=== PATIENT | female | born 1940 | race Hispanic/Latino ===

== ENCOUNTER 2017-03-10 16:22 | Inpatient (IN) | payer MEDICARE ==
[2017-03-10 16:26] VITALS: O2SAT 98
--- NOTE | 2017-03-10 16:57 | ED PDOC ---
HPI: Psych/Substance Abuse Time Seen by Provider: 03/10/17 16:45 Chief Complaint (Nursing): Psychiatric Evaluation Chief Complaint (Provider): Psych evaluation History Per: Patient History/Exam Limitations: no limitations Additional Complaint(s): Patient is a 76 y/o female with a past medical history of obsessive compulsive disorder presenting to the emergency department for a psych evaluation. Reports suicidal ideation, stating that she feels overwhelmed and can't concentrate. Admits to being noncompliant with her medication for years and also expresses concern about developing dementia after she found herself unable to perform simple subtraction. Dressing to right index finger noted. States that her finger started bleeding without reason. Denies suicidal plan, suicidal attempts in the past, homicidal ideation, or other complaints. PCP: none provided. Past Medical History Reviewed: Historical Data, Nursing Documentation, Vital Signs Vital Signs: Last Vital Signs Temp 98.0 F 03/10/17 16:23 Pulse 100 H 03/10/17 16:23 Resp 16 03/10/17 16:23 BP 142/88 03/10/17 16:23 Pulse Ox 98 03/10/17 16:23 - Family History Family History: States: Unknown Family Hx - Allergies Allergies/Adverse Reactions: Allergies Allergy/AdvReac Type Severity Reaction Status Date / Time aspirin Allergy RASH Verified 03/10/17 16:22 Penicillins Allergy RASH Verified 03/10/17 16:22 Review of Systems ROS Statement: Except As Marked, All Systems Reviewed And Found Negative Psych: Positive for: Suicidal ideation (without plan). Negative for: Other ( homicidal ideation) Physical Exam - Reviewed Nursing Documentation Reviewed: Yes Vital Signs Reviewed: Yes - Physical Exam Appears: Positive for: No Acute Distress Head Exam: Positive for: ATRAUMATIC, NORMAL INSPECTION, NORMOCEPHALIC Skin: Positive for: Normal Color, Warm, Dry Eye Exam: Positive for: Normal appearance Neck: Positive for: Normal Cardiovascular/Chest: Positive for: Regular Rate, Rhythm Respiratory: Negative for: Accessory Muscle Use, Respiratory Distress Extremity: Positive for: Normal ROM, Other (Dressing to right index finger noted ) Neurologic/Psych: Positive for: Alert, Oriented (x3) - Laboratory Results Result Diagrams: 03/10/17 17:25 03/10/17 17:25 - ECG O2 Sat by Pulse Oximetry: 98 (RA) Pulse Ox Interpretation: Normal - Progress ED Course And Treament: EKG: NSR 82BPM; NO ECTOPY NO ACUTE CHANGE cxr: nad d/w dr. Yung Admit for Anxiety/ Depression ativan 0.5mg x 1 dose vistaril 25 mg Medical Decision Making Medical Decision Making: Time: 16:45 Initial impression: Psychiatric evaluation Initial plan: * EKG * Labs * Urine drug screening * Chest X-ray * Urinalysis * Reevaluation ~ Scribe Attestation: Documented by Caitlyn Frances, acting as a scribe for CHATA Thomson. Provider Scribe Attestation: All medical record entries made by the Scribe were at my direction and personally dictated by me. I have reviewed the chart and agree that the record accurately reflects my personal performance of the history, physical exam, medical decision making, and the department course for this patient. I have also personally directed, reviewed, and agree with the discharge instructions and disposition. Disposition - Clinical Impression Clinical Impression: Anxiety, OCD (obsessive compulsive disorder) - Patient ED Disposition Is Patient to be Admitted: Yes - Disposition Disposition Time: 19:45 Condition: FAIR - Pt Status Changed To: Hospital Disposition Of: Inpatient - Admit Certification Admit to Inpatient:: After my assessment, the patient will require hospitalization for at least two midnights. This is because of the severity of symptoms shown, intensity of services needed, and/or the medical risk in this patient being treated as an outpatient.
[2017-03-10 17:30] LABS: BASO % 0.5 % (0.0-2.0); EOS % 0.2 % (0.0-4.0); HEMATOCRIT 43.4 % (34.0-47.0); LYMPH # 0.8 K/uL (1.0-4.3); LYMPH % 10.8 % (20.0-40.0); MEAN CELL VOLUME 93.5 fl (81.0-99.0); MEAN CORPUSCULAR HEMOGLOBIN 30.7 pg (27.0-31.0); MEAN CORPUSCULAR HGB CONC 32.8 g/dL (33.0-37.0); MEAN PLATELET VOLUME 8.6 fl (7.2-11.7); MONO # 0.8 K/uL (0.0-0.8); MONO % 9.8 % (0.0-10.0); NEUT # 6.1 K/uL (1.8-7.0); NEUT % 78.7 % (50.0-75.0); RED CELL DISTRIBUTION WIDTH 13.1 % (11.5-14.5); WHITE BLOOD COUNT 7.8 K/uL (4.8-10.8)
[2017-03-10 17:52] LABS: ALB/GLOB RATIO 1.4 (1.0-2.1); ALCOHOL SERUM < 10 mg/dl (0-10); ALKALINE PHOSPHATASE 60 U/L (38-126); ALT/SGPT 31 U/L (9-52); AST/SGOT 24 U/L (14-36); BILIRUBIN,TOTAL 0.2 mg/dl (0.2-1.3); BLOOD UREA NITROGEN 18 mg/dl (7-17); CALCIUM 9.2 mg/dL (8.4-10.2); CARBON DIOXIDE 23 mmol/L (22-30); CHLORIDE 107 mmol/L (98-107); GFR AFRICAN-AMERICAN > 60; GLUCOSE,RANDOM 125 mg/dL (65-105); POTASSIUM 4.1 MMOL/L (3.6-5.0); SODIUM 142 mmol/l (132-148); TOTAL PROTEIN 7.3 G/DL (6.3-8.2)
[2017-03-10 20:51] LABS: RBC URINE 2 /hpf (0-3); URINE BACTERIA RARE (<OCC); URINE BILIRUBIN NEGATIVE (NEGATIVE); URINE BLOOD NEGATIVE (NEGATIVE); URINE COLOR YELLOW (YELLOW); URINE GLUCOSE (UA) NEG (Normal); URINE KETONE NEGATIVE (NEGATIVE); URINE LEUKOCYTE ESTERASE TRACE Leu/uL (Negative); URINE PROTEIN NEGATIVE (NEGATIVE); URINE UROBILINOGEN 0.2-1.0 mg/dL (0.2-1.0); WBC URINE 1 /hpf (0-5)
[2017-03-10] MEDS ORDERED: Magnesium Hydroxide Susp 30 ml UD PO PRN (22:28)
[2017-03-10] MEDS ORDERED: Alum-Mag Hydrox-Simethicone Susp (30 mL) PO PRN (22:28)
--- NOTE | 2017-03-10 22:45 | PCM.BM ---
<Natty Harrison - Last Filed: 03/10/17 22:43> Treatment Plan Problems - Problems identified on initial assessmt Anxiety Date Initiated: 03/10/17 Time Initiated: 22:43 Assessment reference: NA Status: Active Altered Sleep Patterns Date Initiated: 03/10/17 Time Initiated: 22:44 Assessment reference: NA Status: Active Treatment assets and liabiliti Patient Assests: ADL independent, physically healthy, negotiates basic needs Patient Liabilities: live alone - Milieu Protocol Maintain good personal hygiene: daily Encourage regular showers, daily Remind patient to perform daily oral care, daily Assist patient to perform ADL's Conduct patient checks and document Observation sheet: Q15 minutes Maintain personal safety: every shift Educate patient to report safety concerns to staff, every shift Monitor environment for contraband/sharps Medication safety: Monitor for expected outcome, potential side effects: every shift, Assess barriers to learning: every shift, Assess readiness for medication education: every shift <Katie Perez - Last Filed: 03/11/17 09:27> - Diagnosis (1) Generalized anxiety disorder Status: Acute Interventions: Psychopharmacology, Psychoeducation, Psychotherapy 03/11/17 09:27 (2) Major depressive disorder Status: Acute Interventions: Psychopharmacology, Psychoeducation, Psychotherapy 03/11/17 09:28 <Remedios Parrish - Last Filed: 03/15/17 16:01> Family Contact Family contact: Patient agrees to contact Family contact name: Cristy (Daughter) Family contacted how many times per week?: 1 Family contact comment: [phone] - Goals for Treatment Patient goals for treatment: Pt to be encouraged to attend activity and clinical groups 3-5x per week to identify at least 2 contributing factors to depression and anxiety. Psycho-education to be provided to patient/family regarding benefits of medications and treatment adherence. Pt to be encouraged to participate in group milieu to develop effective coping skills to reduce depression and anxiety. Coordinate discharge resource needs by providing referral for psychiatric treatment follow up in the community. Discharge/Continuing Care - Education Needs Education Needs: Family Medication, Family Diagnosis/Disease Process, Family Coping Skills, Family Placement options, Family Community resources, Family Activities of Daily Living, Family Health Practices/Safety, Family Personal Hygiene/Grooming, Family Aftercare Safety Plan, Patient Medication, Patient Diagnosis/Disease Process, Patient Coping Skills, Patient Placement options, Patient Community resources, Patient Activities of Daily Living, Patient Health Practices/Safety, Patient Personal Hygiene/Grooming, Patient Aftercare Safety Plan - Discharge Discharge Criteria: Tolerates medication w/o severe side effects, Normal sleep pattern, Ability to care for self, Reduction of target symptoms Discharge to:: Home, With Family - Additional Comments 03/15/17 16:00 Pt seen and discussed in team meeting. Pt reported feeling "much better." Pt appears to be less anxious and more re-directable. Pt's medications reviewed and discussed. Tx plan reviewed and discussed; pt verbalized agreement. Briquette Molder will continue to follow case/pt. - Treatment Team Participation Discussed with Family/SO: No (Will be informed via telephone) Was Patient/Family/SO present at Treatment Team Meeting: Yes
--- NOTE | 2017-03-11 07:29 | CARD ---
APPROVED REPORT EKG Measurement Heart [id number] <Conclusion> Normal sinus rhythm Cannot rule out Anterior infarct, age undetermined Abnormal ECG
--- NOTE | 2017-03-11 08:35 | PCM.PSYCH ---
Initial Psychiatric Evaluation - Initial Psychiatric Evaluation Type of Admission: Voluntary Legal Status: Capacity Chief Complaint (in patient's own words): "I can't stop worrying" Patient's Reaction to Hospitalization: HPI: 76 yo female w/ h/o depression and anxiety, presents w/ depressed mood, excessive anxiety, ruminating thoughts, no compulsions, anhedonia, hopelessness/ helplessness, poor sleep and appetite. She also feels worried that her money is being depleted from her bank account, but otherwise denied paranoia. No AH/ VH/SI/HI. Patient also reports difficulty with her memory. She is apprehensive to take medications. We discussed various treatment options and she agreed to try Remeron. Risks/benefits reviewed, patient given a handout w/ information. Pt's daughter Cristy Montoya [phone] stated that patient have been progressively is getting worse with her anxiety. She has excessive worrying about anything, particularly money. She does not wants to leave the house. She is not sleeping well, restlessness, easily tired, has difficulties concentrating or doing simple arithmetic problems. She is not sleeping well for days. PPHx: History of inpatient and outpatient tx 13 year ago for a "nervous breakdown". She does not recall which medications she took in the past. PMHx: Patient denies medical problems ALL: ASA, PCN FHx: Mother w/ Alzheimers SHx: Unemployed, lives alone, +children, denies illicit drug use Current Medications: Active Medications Generic Name Dose Route Start Last Admin Trade Name Freq PRN Reason Stop Dose Admin Acetaminophen 650 mg 03/10/17 22:28 Tylenol 325mg Tab PO Q4 PRN Pain, moderate (4-7) Al Hydrox/Mg Hydrox/Simethicone 30 ml 03/10/17 22:28 Maalox Plus 30 Ml PO Q4 PRN Dyspepsia Lorazepam 0.5 mg 03/10/17 22:28 Ativan PO 03/24/17 22:29 HS PRN Insomnia Lorazepam 0.5 mg 03/11/17 01:21 Ativan PO Q6 PRN Anxiety Magnesium Hydroxide 30 ml 03/10/17 22:28 Milk Of Magnesia PO HS PRN Constipation Past Psychiatric History - Past Psychiatric History Previous Treatment History: Inpatient Pertinent Medical Hx (Current Medical&Sleep Prob, Allergies): Allergies Allergy/AdvReac Type Severity Reaction Status Date / Time aspirin Allergy RASH Verified 03/10/17 16:22 Penicillins Allergy RASH Verified 03/10/17 16:22 No Known Home Med 03/10/17 Review of Systems - Psychiatric Psychiatric: As Per HPI, Abnormal Sleep Pattern, Anhedonia, Anxiety, Behavioral Changes, Change in Appetite, Depression, Difficulty Concentrating, Memory Loss Mental Status Examination - Personal Presentation Personal Presentation: Looks stated age - Affect Affect: Other (Anxious, labile) - Motor Activity Motor Activity: Calm - Reliability in Providing Information Reliability in Providing Information: Poor, due to cognitve impairment - Speech Speech: Coherent - Mood Mood: Depressed, Anxious - Formal Thought Process Formal Thought Process: Other (Ruminates about anxious thoughts) - Hallucinations/Delusions Additional comments: NO AH/VH/paranoia/delusions - Obsessions/Compulsions Obsessions: No Compulsions: No - Cognitive Functions Orientation: Person, Place, Situation Sensorium: Alert Judgement: Imparied, as evidence by: Lack of insight into illness Memory: Recent imparied as evidence by:Inability to complete 3/3 object recall, Remote impaired as evidenced by: Inability to recall sig life events, Remote impaired as evidenced by: Inability to recall historical events - Risk Risk: Diminished functioning - Strength & Assets Inventory Strength & Assets Inventory: Family support - Limitations Limitations: Living alone, Decreased memory, recent DSM 5 DX - DSM 5 DSM 5 Diagnosis: Major Depressive Disorder, Generalized Anxiety Disorder, r/o Dementia - Recommended/Plan of Treatment Treatment Recommendations and Plan of Treatment: Major Depressive Disorder, Generalized Anxiety Disorder, r/o Dementia -Admit to psychiatry -Individual and group therapy -Ativan 0.5 mg PO PRN anxiety -Remeron 15 mg PO HS -Obtain collateral history from family Projected ELOS: 3-7 days Discharge Plan and Discharge Criteria: Discharge when psychiatrically stable - Smoking Cessation Smoking Cessation Initiated: No Reason for not providing: Not indicated
--- NOTE | 2017-03-11 08:56 | RAD ---
PROCEDURE: CHEST RADIOGRAPH, 1 VIEW HISTORY: ROUTINE COMPARISON: None available. FINDINGS: LUNGS: Clear. PLEURA: No pneumothorax or pleural fluid seen. CARDIOVASCULAR: Normal. OSSEOUS STRUCTURES: No significant abnormalities. VISUALIZED UPPER ABDOMEN: Normal. OTHER FINDINGS: None. IMPRESSION: No active disease.
--- NOTE | 2017-03-11 11:53 | CP.PCM.CON ---
<Paula Aguilar - Last Filed: 03/11/17 14:34> History of Present Illness - History of Present Illness History of Present Illness: 76 y/o female seen at bedside in psych unit after consult for medical evaluation. Pt states she came into the hospital because she has been having obsessive compulsive thoughts that are making her mind go crazy. Pt states it makes her worried and nervous. Pt denies having any suicidal or homicidal ideations. Pt denies feeling depressed. Pt admits to feeling constipated at this time, which she experiences occasionally at home. Pt denies F/C/N/V/D/CP/ SOB. PMH: denies PSH: tonsillectomy All: PCNs, aspirin Social: formerly social EtOH but increases OCD symptoms; denies cigarette or illicit drug use Review of Systems - Review of Systems All systems: reviewed and no additional remarkable complaints except (per HPI) Past Patient History - Past Social History Smoking Status: Never Smoked - CARDIAC Hx Cardiac Disorders: No - PULMONARY Hx Tuberculosis: No - NEUROLOGICAL HX Cerebrovascular Accident: No Hx Seizures: No - HEMATOLOGICAL/ONCOLOGICAL Hx Cancer: No Hx Human Immunodeficiency Virus (HIV): No - MUSCULOSKELETAL/RHEUMATOLOGICAL Hx Falls: No - GENITOURINARY/GYNECOLOGICAL Hx Sexually Transmitted Disorders: No - PSYCHIATRIC Hx Psychophysiologic Disorder: Yes (OCD) - SURGICAL HISTORY Hx Surgeries: No - ANESTHESIA Hx Anesthesia: No Meds Allergies/Adverse Reactions: Allergies Allergy/AdvReac Type Severity Reaction Status Date / Time aspirin Allergy RASH Verified 03/10/17 16:22 Penicillins Allergy RASH Verified 03/10/17 16:22 - Medications Medications: Current Medications Acetaminophen (Tylenol 325mg Tab) 650 mg PO Q4 PRN PRN Reason: Pain, moderate (4-7) Al Hydrox/Mg Hydrox/Simethicone (Maalox Plus 30 Ml) 30 ml PO Q4 PRN PRN Reason: Dyspepsia Lorazepam (Ativan) 0.5 mg PO HS PRN PRN Reason: Insomnia Stop: 03/24/17 22:29 Lorazepam (Ativan) 0.5 mg PO Q6 PRN PRN Reason: Anxiety Last Admin: 03/11/17 08:52 Dose: 0.5 mg Magnesium Hydroxide (Milk Of Magnesia) 30 ml PO HS PRN PRN Reason: Constipation Mirtazapine (Remeron) 15 mg PO HS [facility] Physical Exam - Constitutional Appears: Well, Non-toxic, No Acute Distress - Head Exam Head Exam: ATRAUMATIC, NORMOCEPHALIC - Eye Exam Eye Exam: EOMI, Normal appearance, PERRL Pupil Exam: NORMAL ACCOMODATION, PERRL - ENT Exam ENT Exam: Mucous Membranes Moist, Normal Exam - Neck Exam Neck exam: Positive for: Full Rom, Normal Inspection Additional comments: supple, non-tender - Respiratory Exam Respiratory Exam: Clear to Auscultation Bilateral, NORMAL BREATHING PATTERN Additional comments: no wheezing, no rales - Cardiovascular Exam Cardiovascular Exam: REGULAR RHYTHM, +S1, +S2 Additional comments: no murmur, no gallop, no JVD - GI/Abdominal Exam GI & Abdominal Exam: Normal Bowel Sounds, Soft Additional comments: non-tender to palpation - Rectal Exam Rectal Exam: Deferred - Extremities Exam Extremities exam: Positive for: normal capillary refill, normal inspection, pedal pulses present - Back Exam Back exam: FULL ROM, NORMAL INSPECTION - Neurological Exam Neurological exam: Alert, CN II-XII Intact, Normal Gait, Oriented x3 - Psychiatric Exam Psychiatric exam: Agitated, Anxious - Skin Skin Exam: Intact, Normal Color Results - Vital Signs Recent Vital Signs: Last Vital Signs Temp 98.0 F 03/10/17 16:23 Pulse 77 03/10/17 21:52 Resp 18 03/10/17 21:52 BP 150/70 03/10/17 21:52 Pulse Ox 98 03/10/17 21:52 - Labs Result Diagrams: 03/10/17 17:25 03/10/17 17:25 Labs: Laboratory Results - last 24 hr 03/10/17 03/10/17 03/10/17 17:25 17:25 20:20 WBC 7.8 RBC 4.64 Hgb 14.2 Hct 43.4 MCV 93.5 MCH 30.7 MCHC 32.8 L RDW 13.1 Plt Count 299 MPV 8.6 Neut % (Auto) 78.7 H Lymph % (Auto) 10.8 L Garza % (Auto) 9.8 Eos % (Auto) 0.2 Baso % (Auto) 0.5 Neut # 6.1 Lymph # 0.8 L Garza # 0.8 Eos # 0.0 Baso # 0.0 Sodium 142 Potassium 4.1 Chloride 107 Carbon Dioxide 23 Anion Gap 16 BUN 18 H Creatinine 0.7 Est GFR ( Amer) > 60 Est GFR (Non-Af Amer) > 60 Random Glucose 125 H Calcium 9.2 Total Bilirubin 0.2 AST 24 ALT 31 Alkaline Phosphatase 60 Total Protein 7.3 Albumin 4.2 Globulin 3.0 Albumin/Globulin Ratio 1.4 Urine Color Yellow Urine Clarity Slighty-cloudy Urine pH 6.0 Ur Specific [place] 1.020 Urine Protein Negative Urine Glucose (UA) Neg Urine Ketones Negative Urine Blood Negative Urine Nitrate Negative Urine Bilirubin Negative Urine Urobilinogen 0.2-1.0 Ur Leukocyte Esterase Trace Urine RBC (Auto) 2 Urine Microscopic WBC 1 Ur Squamous Epith Cells < 1 Urine Bacteria Rare Urine Opiates Screen Urine Methadone Screen Ur Barbiturates Screen Ur Phencyclidine Scrn Ur Amphetamines Screen U Benzodiazepines Scrn U Oth Cocaine Metabols U Cannabinoids Screen Alcohol, Quantitative < 10 03/10/17 20:35 WBC RBC Hgb Hct MCV MCH MCHC RDW Plt Count MPV Neut % (Auto) Lymph % (Auto) Garza % (Auto) Eos % (Auto) Baso % (Auto) Neut # Lymph # Garza # Eos # Baso # Sodium Potassium Chloride Carbon Dioxide Anion Gap BUN Creatinine Est GFR ( Amer) Est GFR (Non-Af Amer) Random Glucose Calcium Total Bilirubin AST ALT Alkaline Phosphatase Total Protein Albumin Globulin Albumin/Globulin Ratio Urine Color Urine Clarity Urine pH Ur Specific [place] Urine Protein Urine Glucose (UA) Urine Ketones Urine Blood Urine Nitrate Urine Bilirubin Urine Urobilinogen Ur Leukocyte Esterase Urine RBC (Auto) Urine Microscopic WBC Ur Squamous Epith Cells Urine Bacteria Urine Opiates Screen Negative Urine Methadone Screen Negative Ur Barbiturates Screen Negative Ur Phencyclidine Scrn Negative Ur Amphetamines Screen Negative U Benzodiazepines Scrn Negative U Oth Cocaine Metabols Negative U Cannabinoids Screen Negative Alcohol, Quantitative Assessment & Plan (1) OCD (obsessive compulsive disorder) Assessment and Plan: psych to continue with medical management Status: Acute (2) Constipation Assessment and Plan: Continue milk of magnesia Status: Chronic <Shaneka Scanlon - Last Filed: 03/12/17 19:22> Meds - Medications Medications: Current Medications Acetaminophen (Tylenol 325mg Tab) 650 mg PO Q4 PRN PRN Reason: Pain, moderate (4-7) Al Hydrox/Mg Hydrox/Simethicone (Maalox Plus 30 Ml) 30 ml PO Q4 PRN PRN Reason: Dyspepsia Lorazepam (Ativan) 0.5 mg PO Q12 LISA Last Admin: 03/12/17 11:02 Dose: 0.5 mg Lorazepam (Ativan) 0.5 mg PO Q12 PRN PRN Reason: Agitation Magnesium Hydroxide (Milk Of Magnesia) 30 ml PO HS PRN PRN Reason: Constipation Results - Vital Signs Recent Vital Signs: Last Vital Signs Temp 98.2 F 03/12/17 16:16 Pulse 81 03/12/17 16:16 Resp 20 03/12/17 16:16 BP 140/71 03/12/17 16:16 Pulse Ox 98 03/10/17 21:52 - Labs Result Diagrams: 03/10/17 17:25 03/10/17 17:25 Attending/Attestation - Attestation I have personally seen and examined this patient.: Yes I have fully participated in the care of the patient.: Yes I have reviewed all pertinent clinical information: Yes Notes (Text): 03/12/17 19:22 SEEN EXAMINED DISCUSSED WITH RESIDENT, AGREE WITH FINDINGS AND PLAN ABOVE.
--- NOTE | 2017-03-12 10:56 | PCM.PYCHPN ---
Psychiatric Progress Note - Psychiatric Progress Note Patient seen today, length of contact: Patient evaluated, case discussed with team, chart reviewed, 35 min Patient Chief Complaint: "I can't stop worrying" Problems Identified/Issues Discussed: Patient continues to be very anxious. She walks around the hallway intrusively talking to staff members. She ruminates over he anxious thoughts and is difficult to redirect at times. She is adamant that she does not want to take any antidepressant medications at this time due to concerns that her body is too sensitive for the medications. She reports that the Remeron makes her feel like "my head is swimming" and does not want to continue to take it. She was agreeable to taking Ativan 0.5 mg PO Q12 hr. r/b/se reviewed. Medication Change: Yes (Start Ativan 0.5 mg Q12 hr) Medical Record Reviewed: Yes Consults ordered or reviewed: Medicine consult appreciated Mental Status Examination - Cognitive Function Orientation: Person, Place, Situation Association: Loose Decription of patient's judgement and insights: Poor insight/fair judgment - Mood Mood: Depressed, Anxious - Affect Affect: Other (Anxious, labile) - Speech Speech: Pressured - Formal Thought Process Formal Thought Process: Other (Ruminates about anxious thoughts) Psychotic Thoughts and Behaviors: Denies AH/VH/paranoia/delusions - Suicidal Ideation Suicidal Ideation: No - Homicidal Ideation Homicidal Ideation: No Goal/Treatment Plan - Goal/Treatment Plan Need for Continued Stay: Remain at risks for inpatient hospitalization, Discharge may exacerbated symptoms Progress Toward Problem(s) and Goals/Treatment Plan: Major Depressive Disorder, Generalized Anxiety Disorder, r/o Dementia -Individual and group therapy -Ativan 0.5 mg PO Q12 hr -Stop Remeron 15 mg PO HS -Obtain collateral history from family -Disposition planning Estimated Date of D/C: 03/16/17 - Smoking Cessation Smoking Cessation Initiated: No Reason for not providing: Not indicated
--- NOTE | 2017-03-12 11:21 | CP.PCM.CON ---
History of Present Illness - History of Present Illness History of Present Illness: Pt is a 76 year old female admitted to [facility] and referred to the marketing writer for evaluation. On the DRS, pt scored an overall score of 125. She scored within normal limits on Attention, Construction, Initiation and Conceptualization tasks. Pt's Memory skills fell in the Borderline Range (17 with 18 within normal limits). Note, pt did not fully invest in the task, did not answer 2 questions/nor guess. She explained, "I need my daughter to know... I can't also balance my checkbook." Enlisting her daughter's help and her anxiety effected her performance on the memory task. Overall 126 Patient encouraged to obtain help in financial assistance advisor to reduce her distress. Thank you for this referral, Dr. Amaro Past Patient History - Past Social History Smoking Status: Never Smoked - CARDIAC Hx Cardiac Disorders: No - PULMONARY Hx Tuberculosis: No - NEUROLOGICAL HX Cerebrovascular Accident: No Hx Seizures: No - HEMATOLOGICAL/ONCOLOGICAL Hx Cancer: No Hx Human Immunodeficiency Virus (HIV): No - MUSCULOSKELETAL/RHEUMATOLOGICAL Hx Falls: No - GENITOURINARY/GYNECOLOGICAL Hx Sexually Transmitted Disorders: No - PSYCHIATRIC Hx Psychophysiologic Disorder: Yes (OCD) - SURGICAL HISTORY Hx Surgeries: No - ANESTHESIA Hx Anesthesia: No Meds Allergies/Adverse Reactions: Allergies Allergy/AdvReac Type Severity Reaction Status Date / Time aspirin Allergy RASH Verified 03/10/17 16:22 Penicillins Allergy RASH Verified 03/10/17 16:22 - Medications Medications: Current Medications Acetaminophen (Tylenol 325mg Tab) 650 mg PO Q4 PRN PRN Reason: Pain, moderate (4-7) Al Hydrox/Mg Hydrox/Simethicone (Maalox Plus 30 Ml) 30 ml PO Q4 PRN PRN Reason: Dyspepsia Lorazepam (Ativan) 0.5 mg PO Q12 LISA Last Admin: 03/12/17 11:02 Dose: 0.5 mg Lorazepam (Ativan) 0.5 mg PO Q12 PRN PRN Reason: Agitation Magnesium Hydroxide (Milk Of Magnesia) 30 ml PO HS PRN PRN Reason: Constipation Results - Vital Signs Recent Vital Signs: Last Vital Signs Temp 97.7 F 03/11/17 16:16 Pulse 84 03/11/17 16:16 Resp 20 03/11/17 16:16 BP 128/92 H 03/11/17 16:16 Pulse Ox 98 03/10/17 21:52 - Labs Result Diagrams: 03/10/17 17:25 03/10/17 17:25
--- NOTE | 2017-03-13 10:59 | PCM.PYCHPN ---
Psychiatric Progress Note - Psychiatric Progress Note Patient seen today, length of contact: Patient evaluated, case discussed with team, chart reviewed, 35 min Patient Chief Complaint: "I can't stop worrying" Problems Identified/Issues Discussed: Patient continues to be very anxious. She walks around the hallway intrusively talking to staff members. She ruminates over he anxious thoughts and is difficult to redirect at times. Today we discussed starting Zoloft, r/b/se reviewed, patient was agreeable to starting the medication. No adverse effects to Ativan reported. Medication Change: Yes (Start Zoloft 50 mg PO Daily) Medical Record Reviewed: Yes Consults ordered or reviewed: Psychology consult- Pt is a 76 year old female admitted to [facility] and referred to the chief underwriter for evaluation. On the DRS, pt scored an overall score of 125. She scored within normal limits on Attention, Construction, Initiation and Conceptualization tasks. Pt's Memory skills fell in the Borderline Range (17 with 18 within normal limits). Note, pt did not fully invest in the task, did not answer 2 questions/nor guess. She explained, "I need my daughter to know... I can't also balance my checkbook." Enlisting her daughter's help and her anxiety effected her performance on the memory task. Overall 126 Patient encouraged to obtain help in financial aid counselor to reduce her distress. Thank you for this referral, Dr. Amaro Mental Status Examination - Cognitive Function Orientation: Person, Place, Situation, Time Memory: Intact Association: Loose Decription of patient's judgement and insights: Poor insight/fair judgment - Mood Mood: Depressed, Anxious - Affect Affect: Other (Anxious, labile) - Speech Speech: Pressured - Formal Thought Process Formal Thought Process: Other (Ruminates about anxious thoughts) Psychotic Thoughts and Behaviors: Denies AH/VH/paranoia/delusions - Suicidal Ideation Suicidal Ideation: No - Homicidal Ideation Homicidal Ideation: No Goal/Treatment Plan - Goal/Treatment Plan Need for Continued Stay: Remain at risks for inpatient hospitalization, Discharge may exacerbated symptoms Progress Toward Problem(s) and Goals/Treatment Plan: Major Depressive Disorder, Generalized Anxiety Disorder -Individual and group therapy -Ativan 0.5 mg PO Q12 hr -Zoloft 50 mg PO Daily -Medicine and psychology consults appreciated -Obtain collateral history from family -Disposition planning Estimated Date of D/C: 03/16/17
--- NOTE | 2017-03-14 08:17 | PCM.PYCHPN ---
Psychiatric Progress Note - Psychiatric Progress Note Patient seen today, length of contact: Patient evaluated, case discussed with team, chart reviewed, 35 min Patient Chief Complaint: "I can't stop worrying" Problems Identified/Issues Discussed: Patient continues to be very anxious and intrusive towards staff. She ruminates over he anxious thoughts and is difficult to redirect at times. Despite denying adverse effects to medications, she continues to be apprehensive to take medications because she does not "want to be a zombie." Medication Change: No Medical Record Reviewed: Yes Consults ordered or reviewed: Psychology consult- Pt is a 76 year old female admitted to [facility] and referred to the editorial writer for evaluation. On the DRS, pt scored an overall score of 125. She scored within normal limits on Attention, Construction, Initiation and Conceptualization tasks. Pt's Memory skills fell in the Borderline Range (17 with 18 within normal limits). Note, pt did not fully invest in the task, did not answer 2 questions/nor guess. She explained, "I need my daughter to know... I can't also balance my checkbook." Enlisting her daughter's help and her anxiety effected her performance on the memory task. Overall 126 Patient encouraged to obtain help in financial institution treasurer to reduce her distress. Thank you for this referral, Dr. Amaro Mental Status Examination - Cognitive Function Orientation: Person, Place, Situation, Time Memory: Intact Association: Loose Decription of patient's judgement and insights: Poor insight/fair judgment - Mood Mood: Depressed, Anxious - Affect Affect: Other (Anxious, labile) - Speech Speech: Pressured - Formal Thought Process Formal Thought Process: Other (Ruminates about anxious thoughts) Psychotic Thoughts and Behaviors: Denies AH/VH/paranoia/delusions - Suicidal Ideation Suicidal Ideation: No - Homicidal Ideation Homicidal Ideation: No Goal/Treatment Plan - Goal/Treatment Plan Need for Continued Stay: Remain at risks for inpatient hospitalization, Discharge may exacerbated symptoms Progress Toward Problem(s) and Goals/Treatment Plan: Major Depressive Disorder, Generalized Anxiety Disorder -Individual and group therapy -Ativan 0.5 mg PO Q12 hr -Zoloft 50 mg PO Daily -Medicine and psychology consults appreciated -Obtain collateral history from family -Disposition planning Estimated Date of D/C: 03/17/17
--- NOTE | 2017-03-15 11:15 | PCM.PYCHPN ---
Psychiatric Progress Note - Psychiatric Progress Note Patient seen today, length of contact: Patient evaluated, case discussed with team, chart reviewed, 35 min Patient Chief Complaint: "I'm a little better." Problems Identified/Issues Discussed: Patient is calmer, less anxious and less intrusive towards others. She still continues to have anxiety about various things and request reassurance from staff. She denies adverse effects to medications and has been compliant with Ativan and Zoloft. Medication Change: No Medical Record Reviewed: Yes Consults ordered or reviewed: Psychology consult- Pt is a 76 year old female admitted to [facility] and referred to the senior technical writer for evaluation. On the DRS, pt scored an overall score of 125. She scored within normal limits on Attention, Construction, Initiation and Conceptualization tasks. Pt's Memory skills fell in the Borderline Range (17 with 18 within normal limits). Note, pt did not fully invest in the task, did not answer 2 questions/nor guess. She explained, "I need my daughter to know... I can't also balance my checkbook." Enlisting her daughter's help and her anxiety effected her performance on the memory task. Overall 126 Patient encouraged to obtain help in financial agent to reduce her distress. Thank you for this referral, Dr. Amaro Mental Status Examination - Cognitive Function Orientation: Person, Place, Situation, Time Memory: Intact Association: Loose Decription of patient's judgement and insights: Improving I/J - Mood Mood: Anxious - Affect Affect: Other (Anxious, labile) - Speech Speech: Loud - Formal Thought Process Formal Thought Process: Other (Ruminates about anxious thoughts) Psychotic Thoughts and Behaviors: Denies AH/VH/paranoia/delusions - Suicidal Ideation Suicidal Ideation: No - Homicidal Ideation Homicidal Ideation: No Goal/Treatment Plan - Goal/Treatment Plan Need for Continued Stay: Remain at risks for inpatient hospitalization, Severe depression anxiety, Discharge may exacerbated symptoms Progress Toward Problem(s) and Goals/Treatment Plan: Major Depressive Disorder, Generalized Anxiety Disorder -Individual and group therapy -Continue Ativan 0.5 mg PO Q12 hr -Continue Zoloft 50 mg PO Daily -Medicine and psychology consults appreciated -SW met w/ patient's daughter on Wednesday, see note -Disposition planning Estimated Date of D/C: 03/17/17 - Smoking Cessation Smoking Cessation Initiated: No Reason for not providing: Not indicated
--- NOTE | 2017-03-16 11:28 | PCM.PYCHPN ---
Psychiatric Progress Note - Psychiatric Progress Note Patient seen today, length of contact: Patient evaluated, case discussed with team, chart reviewed, 35 min Patient Chief Complaint: "I'm getting better." Problems Identified/Issues Discussed: Patient continues to improve clinically. She is calmer, less anxious and less intrusive towards others. She denies adverse effects to medications and has been compliant with Ativan and Zoloft. Medication Change: No Medical Record Reviewed: Yes Consults ordered or reviewed: Psychology consult- Pt is a 76 year old female admitted to [facility] and referred to the caption writer for evaluation. On the DRS, pt scored an overall score of 125. She scored within normal limits on Attention, Construction, Initiation and Conceptualization tasks. Pt's Memory skills fell in the Borderline Range (17 with 18 within normal limits). Note, pt did not fully invest in the task, did not answer 2 questions/nor guess. She explained, "I need my daughter to know... I can't also balance my checkbook." Enlisting her daughter's help and her anxiety effected her performance on the memory task. Overall 126 Patient encouraged to obtain help in financial intern to reduce her distress. Thank you for this referral, Dr. Amaro Mental Status Examination - Cognitive Function Orientation: Person, Place, Situation, Time Memory: Intact Association: Loose Decription of patient's judgement and insights: Improving I/J - Mood Mood: Anxious - Affect Affect: Broad - Speech Speech: Appropriate - Formal Thought Process Formal Thought Process: No Impairment Psychotic Thoughts and Behaviors: Denies AH/VH/paranoia/delusions - Suicidal Ideation Suicidal Ideation: No - Homicidal Ideation Homicidal Ideation: No Goal/Treatment Plan - Goal/Treatment Plan Need for Continued Stay: Remain at risks for inpatient hospitalization, Severe depression anxiety, Discharge may exacerbated symptoms Progress Toward Problem(s) and Goals/Treatment Plan: Major Depressive Disorder, Generalized Anxiety Disorder; patient is improving clinically. Will likely discharge tomorrow if she continues to improve clinically. -Individual and group therapy -Continue Ativan 0.5 mg PO Q12 hr -Continue Zoloft 50 mg PO Daily -Medicine and psychology consults appreciated -UGO met w/ patient's daughter on Wednesday, see note -Disposition planning Estimated Date of D/C: 03/17/17 - Smoking Cessation Smoking Cessation Initiated: No Reason for not providing: Not indicated
--- NOTE | 2017-03-17 11:12 | PCM.PYCHPN ---
Psychiatric Progress Note - Psychiatric Progress Note Patient seen today, length of contact: Patient evaluated, case discussed with team, chart reviewed, 35 min Patient Chief Complaint: "I'm getting better." Problems Identified/Issues Discussed: Patient continues to improve clinically. She is calmer, less anxious and less intrusive towards others. She denies adverse effects to medications and has been compliant with Ativan and Zoloft. Medication Change: No Medical Record Reviewed: Yes Mental Status Examination - Cognitive Function Orientation: Person, Place, Situation, Time Memory: Intact Association: Loose Decription of patient's judgement and insights: Improving I/J - Mood Mood: Anxious - Affect Affect: Broad - Speech Speech: Appropriate - Formal Thought Process Formal Thought Process: No Impairment Psychotic Thoughts and Behaviors: Denies AH/VH/paranoia/delusions - Suicidal Ideation Suicidal Ideation: No - Homicidal Ideation Homicidal Ideation: No Goal/Treatment Plan - Goal/Treatment Plan Need for Continued Stay: Remain at risks for inpatient hospitalization, Severe depression anxiety, Discharge may exacerbated symptoms Progress Toward Problem(s) and Goals/Treatment Plan: Major Depressive Disorder, Generalized Anxiety Disorder; patient is improving clinically. Will likely discharge tomorrow if she continues to improve clinically. -Individual and group therapy -Continue Ativan 0.5 mg PO Q12 hr -Continue Zoloft 50 mg PO Daily -Medicine and psychology consults appreciated -UGO met w/ patient's daughter on Wednesday, see note -Disposition planning Estimated Date of D/C: 03/17/17
--- NOTE | 2017-03-17 12:50 | PCM.PYCHPN ---
Psychiatric Progress Note - Psychiatric Progress Note Patient seen today, length of contact: Patient evaluated, case discussed with team, chart reviewed, 35 min Patient Chief Complaint: "I'm so anxious." Problems Identified/Issues Discussed: Patient is reporting that she feels increased anxiety today. She is worried that she will have anxiety at home and needs reassurance. She states that she is worried about herself when she leaves the hospital. Case discussed w/ the patient's daughter and the patient will stay in the hospital an additional day for monitoring, medications and therapy. She denies adverse effects to medications and has been compliant with Ativan and Zoloft. Medication Change: No Medical Record Reviewed: Yes Consults ordered or reviewed: Psychology consult- Pt is a 76 year old female admitted to [facility] and referred to the service writer for evaluation. On the DRS, pt scored an overall score of 125. She scored within normal limits on Attention, Construction, Initiation and Conceptualization tasks. Pt's Memory skills fell in the Borderline Range (17 with 18 within normal limits). Note, pt did not fully invest in the task, did not answer 2 questions/nor guess. She explained, "I need my daughter to know... I can't also balance my checkbook." Enlisting her daughter's help and her anxiety effected her performance on the memory task. Overall 126 Patient encouraged to obtain help in peoplesoft financials consultant to reduce her distress. Thank you for this referral, Dr. Amaro Mental Status Examination - Cognitive Function Orientation: Person, Place, Situation, Time Memory: Intact Association: Loose Decription of patient's judgement and insights: Improving I/J - Mood Mood: Anxious - Affect Affect: Broad - Speech Speech: Appropriate - Formal Thought Process Formal Thought Process: No Impairment Psychotic Thoughts and Behaviors: Denies AH/VH/paranoia/delusions - Suicidal Ideation Suicidal Ideation: No - Homicidal Ideation Homicidal Ideation: No Goal/Treatment Plan - Goal/Treatment Plan Need for Continued Stay: Remain at risks for inpatient hospitalization, Severe depression anxiety, Discharge may exacerbated symptoms Progress Toward Problem(s) and Goals/Treatment Plan: Major Depressive Disorder, Generalized Anxiety Disorder; patient is improving clinically but continues to feel severe anxiety; will likely discharge tomorrow if the patient improves clinically. -Individual and group therapy -Continue Ativan 0.5 mg PO Q12 hr -Continue Zoloft 50 mg PO Daily -Medicine and psychology consults appreciated -UGO met w/ patient's daughter on Wednesday, see note -Disposition planning Estimated Date of D/C: 03/18/17
[2017-03-17 16:16] VITALS: RESP 20
--- NOTE | 2017-03-18 09:56 | PCM.PYCHDC ---
Mental Status Examination - Mental Status Examination Orientation: Person, Place, Situation, Time Memory: Intact Mood: Neutral Affect: Broad Speech: Appropriate Attention: WNL Concentration: WNL Association: WNL Fund of Knowledge: WNL Formal Thought Process: No Impairment Description of patient's judgement and insight: Fair I/J Psychotic Thoughts and Behaviors: NO AH/VH/paranoia/delusions Suicidal Ideation: No Current Homicidal Ideation?: No Discharge Summary - Discharge Note Reason for Hospitalization: HPI: 76 yo female w/ h/o depression and anxiety, presents w/ depressed mood, excessive anxiety, ruminating thoughts, no compulsions, anhedonia, hopelessness/ helplessness, poor sleep and appetite. She also feels worried that her money is being depleted from her bank account, but otherwise denied paranoia. No AH/ VH/SI/HI. Patient also reports difficulty with her memory. She is apprehensive to take medications. We discussed various treatment options and she agreed to try Remeron. Risks/benefits reviewed, patient given a handout w/ information. Pt's daughter Cristy Montoya [phone] stated that patient have been progressively is getting worse with her anxiety. She has excessive worrying about anything, particularly money. She does not wants to leave the house. She is not sleeping well, restlessness, easily tired, has difficulties concentrating or doing simple arithmetic problems. She is not sleeping well for days. PPHx: History of inpatient and outpatient tx 13 year ago for a "nervous breakdown". She does not recall which medications she took in the past. PMHx: Patient denies medical problems ALL: ASA, PCN FHx: Mother w/ Alzheimers SHx: Unemployed, lives alone, +children, denies illicit drug use Consultations:: List each consultation separately and include: 1. Reason for request. 2. Findings. 3. Follow-up Consultations: Medicine consult + Psychology consult Psychology consult- Pt is a 76 year old female admitted to [facility] and referred to the scientific writer for evaluation. On the DRS, pt scored an overall score of 125. She scored within normal limits on Attention, Construction, Initiation and Conceptualization tasks. Pt's Memory skills fell in the Borderline Range (17 with 18 within normal limits). Note, pt did not fully invest in the task, did not answer 2 questions/nor guess. She explained, "I need my daughter to know... I can't also balance my checkbook." Enlisting her daughter's help and her anxiety effected her performance on the memory task. Overall 126 Patient encouraged to obtain help in financial market dealer to reduce her distress. Thank you for this referral, Dr. Amaro Summary of Hospital Course include:: 1. Description of specific treatment plan utilized for patients during their course of treatmen. 2. Summarize the time- course for resolution of acute symptoms and/or regressed behaviors. 3. Describe issues identified and worked on during hospitalization. 4. Describe medication utilized. 5. Describe medical problems identified and treated. 6. Reassessment of suicide risk Summary of Hospital Course: Patient was admitted to the psychiatry unit. Individual and group therapy were provided. Patient was stabilized on Ativan 0.5 mg PO Q12 hr and Zoloft 50 mg PO Daily. She reports reduction in her depression and anxiety symptoms and is now psychiatrically stable for discharge. - Diagnosis (1) Generalized anxiety disorder Current Visit: Yes Status: Acute (2) Major depressive disorder Current Visit: Yes Status: Acute - Final Diagnosis (DSM 5) Condition upon Discharge: STABLE DSM 5: Major Depressive Disorder, Generalized Anxiety Disorder Disposition: HOME/ ROUTINE Follow-up Treatment Plan: Major Depressive Disorder, Generalized Anxiety Disorder -Discharge to home w/ outpatient follow-up Prescriptions/Medication Reconciliation: LORazepam [Ativan] 0.5 mg PO Q12 #60 tab Sertraline [Zoloft] 50 mg PO DAILY #30 tab - Smoking Cessation Smoking Cessation Medication prescribed: No Reason for not providing: Not indicated - Antipsychotic Medications Pt discharged on 2 or more routine antipsychotic medications: No
[2017-03-18 10:46] VITALS: BP 142/76; PULSE 86; TEMP 97.7
== END 2017-03-18 13:59 | disposition home or self-care (01) | DRG 880 ==
LOC: H.ER 16:22 → H.ERHOLD 19:45 → H.STEP 22:17
PROVIDERS: ADMIT Psychiatry & Neurology Psychiatry; ATTEND Psychiatry & Neurology Psychiatry
PROC: GZHZZZZ Group Psychotherapy (ICD-10-PCS; principal; 2017-03-10)
DX: F41.1 Generalized anxiety disorder (principal); R45.851 Suicidal ideations; Z91.14 Patient's other noncompliance with medication regimen; F32.9 Major depressive disorder, single episode, unspecified; F42.9 Obsessive-compulsive disorder, unspecified; K59.00 Constipation, unspecified; Z88.6 Allergy status to analgesic agent; Z88.0 Allergy status to penicillin

== ENCOUNTER 2017-05-05 09:09 | Emergency (ER) | payer MEDICARE ==
[2017-05-05 09:18] VITALS: RESP 18; TEMP 98; O2SAT 100
[2017-05-05 11:20] LABS: BASO % 0.5 % (0.0-2.0); EOS % 0.2 % (0.0-4.0); HEMATOCRIT 41.7 % (34.0-47.0); LYMPH # 0.9 K/uL (1.0-4.3); LYMPH % 12.2 % (20.0-40.0); MEAN CELL VOLUME 93.3 fl (81.0-99.0); MEAN CORPUSCULAR HEMOGLOBIN 30.9 pg (27.0-31.0); MEAN CORPUSCULAR HGB CONC 33.1 g/dL (33.0-37.0); MEAN PLATELET VOLUME 8.5 fl (7.2-11.7); MONO # 0.7 K/uL (0.0-0.8); MONO % 9.6 % (0.0-10.0); NEUT # 5.6 K/uL (1.8-7.0); NEUT % 77.5 % (50.0-75.0); NRBC % 0.1 % (0.0-0.0); RED CELL DISTRIBUTION WIDTH 13.5 % (11.5-14.5); WHITE BLOOD COUNT 7.2 K/uL (4.8-10.8)
[2017-05-05 11:28] LABS: POTASSIUM 4.2 MMOL/L (3.6-5.0)
[2017-05-05 11:29] LABS: ALCOHOL SERUM < 10 mg/dl (0-10); BLOOD UREA NITROGEN 9 mg/dl (7-17); CALCIUM 8.9 mg/dL (8.4-10.2); CARBON DIOXIDE 23 mmol/L (22-30); CHLORIDE 109 mmol/L (98-107); GFR AFRICAN-AMERICAN > 60; GLUCOSE,RANDOM 121 mg/dL (65-105); SODIUM 140 mmol/l (132-148)
--- NOTE | 2017-05-05 12:28 | ED PDOC ---
HPI: Psych/Substance Abuse Time Seen by Provider: 05/05/17 09:15 Chief Complaint (Nursing): Anxiety Chief Complaint (Provider): Anxiety History Per: Patient History/Exam Limitations: no limitations Onset/Duration Of Symptoms: Days (x1) Current Symptoms Are (Timing): Still Present Suicide/Self Injury Attempted (Context): None Associated Symptoms: Anxiety Additional Complaint(s): Meredith Montoya is a 76 year old female, with a past medical history of anxiety and depression, who presents to the emergency department complaining of anxiety onset since this morning. Patient reports waking up anxious, she thought she was going to right there from the anxiety. She states her body felt numb but it has now resolved. Her kids don't live near and she is a so she sometimes feels sad. She denies taking any medication. No further medical complaints. denies SI or HI PMD: None provided. Past Medical History Reviewed: Historical Data, Nursing Documentation, Vital Signs Vital Signs: Last Vital Signs Temp 98 F 05/05/17 09:16 Pulse 104 H 05/05/17 09:16 Resp 18 05/05/17 09:16 BP 140/76 05/05/17 09:16 Pulse Ox 100 05/05/17 09:16 - Medical History PMH: Anxiety Denies: Diabetes, Hepatitis, HIV, HTN, Seizures, Sexually Transmitted Disease - Surgical History Surgical History: No Surg Hx - Family History Family History: States: Unknown Family Hx - Social History Current smoker - smoking cessation education provided: No Alcohol: None Drugs: Denies - Home Medications Home Medications: Ambulatory Orders Medication Instructions Recorded LORazepam [Ativan] 0.5 mg PO Q12 #60 tab 03/16/17 Sertraline [Zoloft] 50 mg PO DAILY #30 tab 03/16/17 Nitrofurantoin Macrocrystals 100 mg PO BID #14 cap 05/05/17 [Macrobid] - Allergies Allergies/Adverse Reactions: Allergies Allergy/AdvReac Type Severity Reaction Status Date / Time aspirin Allergy RASH Verified 05/05/17 09:16 Penicillins Allergy RASH Verified 05/05/17 09:16 Review of Systems ROS Statement: Except As Marked, All Systems Reviewed And Found Negative Psych: Positive for: Anxiety Physical Exam - Reviewed Nursing Documentation Reviewed: Yes Vital Signs Reviewed: Yes - Physical Exam Appears: Positive for: Well, Non-toxic, No Acute Distress Head Exam: Positive for: ATRAUMATIC, NORMAL INSPECTION Skin: Positive for: Normal Color, Warm, Dry Eye Exam: Positive for: Normal appearance Neck: Positive for: Normal, Painless ROM, Supple Cardiovascular/Chest: Positive for: Regular Rate, Rhythm. Negative for: Murmur Respiratory: Positive for: Normal Breath Sounds. Negative for: Respiratory Distress Gastrointestinal/Abdominal: Positive for: Normal Exam, Soft. Negative for: Tenderness, Guarding, Rebound Extremity: Positive for: Normal ROM. Negative for: Pedal Edema, Deformity, Swelling Neurologic/Psych: Positive for: Alert (x3), Oriented - Laboratory Results Result Diagrams: 05/05/17 11:07 05/05/17 11:07 - ECG O2 Sat by Pulse Oximetry: 100 (RA) Pulse Ox Interpretation: Normal Medical Decision Making Medical Decision Making: Initial Impression: anxiety Initial Plan: --EKG --Acetaminophen --Alcohol serum --Basic Metabolic Panel --Drug screen, urine --Salicylate --Crisis evaluation --CBC w/ differential --Urinalysis --reevaluation 12:37 pt medically cleared for crisis eval. borderline uti noted on urine. pt without symptoms of dysuria or polyuria. pt given rx macrobid and told to follow up with pcp. pt was seen by crisis. -Patient was cleared by Dr adrian who diagnosed pt with anxiety, and will be discharged home . pt feels better, ambulating with steady gait. Scribe Attestation: Documented by Torsten Enrique, acting as a scribe for Shayy Silva MD Provider Scribe Attestation: All medical record entries made by the Scribe were at my direction and personally dictated by me. I have reviewed the chart and agree that the record accurately reflects my personal performance of the history, physical exam, medical decision making, and the department course for this patient. I have also personally directed, reviewed, and agree with the discharge instructions and disposition. Disposition - Clinical Impression Clinical Impression: Anxiety attack - Patient ED Disposition Is Patient to be Admitted: No Counseled Patient/Family Regarding: Studies Performed, Diagnosis, Need For Followup - Disposition Referrals: [facility] [Outside] [facility] [Outside] Disposition: Routine/Home Disposition Time: 12:00 Condition: IMPROVED Additional Instructions: follow up with your primary doctor/psychiatric in 1-2 days. return to the ED with any worsening or concerning symptoms. Prescriptions: Nitrofurantoin Macrocrystals [Macrobid] 100 mg PO BID #14 cap Instructions: Urinary Tract Infection in Women (ED), Anxiety (ED) Forms: [employer] ([place])
[2017-05-05 13:38] VITALS: BP 132/70; PULSE 77
[2017-05-05 14:25] LABS: RBC URINE < 1 /hpf (0-3); URINE BACTERIA RARE (<OCC); URINE BILIRUBIN NEGATIVE (NEGATIVE); URINE BLOOD NEGATIVE (NEGATIVE); URINE COLOR YELLOW (YELLOW); URINE GLUCOSE (UA) NEG (Normal); URINE KETONE TRACE mg/dL (NEGATIVE); URINE LEUKOCYTE ESTERASE MOD Leu/uL (Negative); URINE PROTEIN NEGATIVE (NEGATIVE); URINE UROBILINOGEN 0.2-1.0 mg/dL (0.2-1.0); WBC URINE 9 /hpf (0-5)
--- NOTE | 2017-05-06 19:28 | CARD ---
APPROVED REPORT EKG Measurement Heart [id number] <Conclusion> Normal sinus rhythm Biatrial enlargement Cannot rule out Anterior infarct, age undetermined Abnormal ECG
== END 2017-05-05 13:25 | disposition home or self-care (01) ==
LOC: H.ER 09:09
DX: F41.9 Anxiety disorder, unspecified (principal); N39.0 Urinary tract infection, site not specified; I51.7 Cardiomegaly; Z88.0 Allergy status to penicillin
CPT/HCPCS: 80048; 81003; 85025; 93005; 99282; G0480

== ENCOUNTER 2017-06-23 19:58 | Emergency (ER) | payer MEDICARE ==
[2017-06-23 20:08] VITALS: BP 147/75; PULSE 108; RESP 16; TEMP 97.7; O2SAT 100
--- NOTE | 2017-06-23 20:28 | ED PDOC ---
HPI: Psych/Substance Abuse Time Seen by Provider: 06/23/17 20:16 Chief Complaint (Nursing): Altered Mental Status Chief Complaint (Provider): crisis eval Additional Complaint(s): 76 y/o female history of anxiety, obsessive compulsive disorder brought in by EMS for crisis eval. Patient unwilling to answer questions; states she is " just existing" and thinks she has diabetes and that is affecting her brain and is requesting Insulin. Past Medical History Reviewed: Historical Data, Nursing Documentation, Vital Signs Vital Signs: Last Vital Signs Temp 97.7 F 06/23/17 20:06 Pulse 108 H 06/23/17 20:06 Resp 16 06/23/17 20:06 BP 147/75 06/23/17 20:06 Pulse Ox 100 06/23/17 20:06 - Medical History PMH: Anxiety Denies: Diabetes, Hepatitis, HIV, HTN, Seizures, Sexually Transmitted Disease - Family History Family History: States: Unknown Family Hx - Home Medications Home Medications: Ambulatory Orders Medication Instructions Recorded LORazepam [Ativan] 0.5 mg PO Q12 #60 tab 03/16/17 Sertraline [Zoloft] 50 mg PO DAILY #30 tab 03/16/17 Nitrofurantoin Macrocrystals 100 mg PO BID #14 cap 05/05/17 [Macrobid] - Allergies Allergies/Adverse Reactions: Allergies Allergy/AdvReac Type Severity Reaction Status Date / Time aspirin Allergy RASH Verified 05/05/17 09:16 Penicillins Allergy RASH Verified 05/05/17 09:16 Review of Systems ROS Statement: Except As Marked, All Systems Reviewed And Found Negative Psych: Positive for: Anxiety, Depression Physical Exam - Reviewed Nursing Documentation Reviewed: Yes Vital Signs Reviewed: Yes - Physical Exam Appears: Positive for: Well, Non-toxic, Uncomfortable (anxious, paranoid) Head Exam: Positive for: ATRAUMATIC, NORMAL INSPECTION, NORMOCEPHALIC Skin: Positive for: Normal Color Eye Exam: Positive for: Normal appearance ENT: Positive for: Normal ENT Inspection Cardiovascular/Chest: Positive for: Regular Rate, Rhythm Respiratory: Positive for: Normal Breath Sounds Gastrointestinal/Abdominal: Positive for: Normal Exam Back: Positive for: Normal Inspection Extremity: Positive for: Normal ROM Neurologic/Psych: Positive for: Alert, Oriented - ECG O2 Sat by Pulse Oximetry: 100 - Progress ED Course And Treament: Patient refusing labs now; states she no longer wishes to be evaluated. Agreeable to accucheck. Patient awake, alert, oriented x3; denies suicidal/homicidal ideations. Patient evaluated by lube worker and cleared for discharged as per Dr. Yung. Return precautions given. Disposition - Clinical Impression Clinical Impression: Anxiety - Patient ED Disposition Is Patient to be Admitted: No Counseled Patient/Family Regarding: Studies Performed, Diagnosis, Need For Followup - Disposition Disposition: Routine/Home Disposition Time: 21:54 Condition: STABLE Instructions: Anxiety (ED)
== END 2017-06-23 22:06 | disposition home or self-care (01) ==
LOC: H.ER 19:58
DX: F41.9 Anxiety disorder, unspecified (principal); Z88.0 Allergy status to penicillin

== ENCOUNTER 2017-07-05 22:17 | Emergency (ER) | payer MEDICARE ==
[2017-07-06 00:56] LABS: BASO % 0.5 % (0.0-2.0); EOS # 0.1 K/uL (0.0-0.7); EOS % 1.9 % (0.0-4.0); LYMPH # 1.4 K/uL (1.0-4.3); LYMPH % 21.8 % (20.0-40.0); MEAN CELL VOLUME 94.8 fl (81.0-99.0); MEAN CORPUSCULAR HEMOGLOBIN 31.8 pg (27.0-31.0); MEAN CORPUSCULAR HGB CONC 33.6 g/dL (33.0-37.0); MONO # 0.7 K/uL (0.0-0.8); MONO % 11.2 % (0.0-10.0); NEUT # 4.3 K/uL (1.8-7.0); NEUT % 64.6 % (50.0-75.0); NRBC % 0.1 % (0.0-0.0); RBC 3.76 Mil/uL (3.80-5.20); RED CELL DISTRIBUTION WIDTH 13.9 % (11.5-14.5); WHITE BLOOD COUNT 6.6 K/uL (4.8-10.8)
[2017-07-06 01:12] LABS: ALB/GLOB RATIO 1.2 (1.0-2.1); ALBUMIN 3.5 g/dL (3.5-5.0); ALT/SGPT 116 U/L (9-52); AST/SGOT 52 U/L (14-36); BLOOD UREA NITROGEN 17 mg/dl (7-17); CALCIUM 8.5 mg/dL (8.4-10.2); GFR AFRICAN-AMERICAN > 60; GFR NON-AFRICAN AMERICAN > 60; MAGNESIUM 2.2 MG/DL (1.6-2.3)
--- NOTE | 2017-07-06 01:13 | ED PDOC ---
HPI: Psych/Substance Abuse Time Seen by Provider: 07/05/17 22:40 Chief Complaint (Nursing): Psychiatric Evaluation Chief Complaint (Provider): Psychiatric Evaluation ED Caveat: Altered Mental Status, Uncooperative History Per: Patient, Other (friend) History/Exam Limitations: no limitations Onset/Duration Of Symptoms: Days (2-3 months) Current Symptoms Are (Timing): Still Present Additional Complaint(s): 76 year old female presents to the ED for psych evaluation. According to a friend, patient has been living in the lobby and hallway of her home for 2-3 months because the condition of her place is unlivable due to the amount of dirt and junk. Also reports the patient has become increasing unable to care for herself refuses to go see doctors. She has been on Zoloft for depression but currently is on no mediations and has not seen a doctor for several years. She denies history given by friend and any homicidal or suicidal ideation. Note , RN Sewell obtained additional info from her daughter on the phone about the unlivable conditions. This is her third visit to ED for the same reason recently. Patient history may be unreliable due to clinical or psych state and lack of cooperation. PMD: none Past Medical History Reviewed: Historical Data, Nursing Documentation, Vital Signs Vital Signs: Last Vital Signs Temp Pulse 95 H 07/05/17 22:20 Resp 16 07/05/17 22:20 BP 182/84 H 07/05/17 22:20 Pulse Ox 98 07/05/17 22:20 - Medical History PMH: Anxiety Denies: Diabetes, Hepatitis, HIV, HTN, Seizures, Sexually Transmitted Disease - Surgical History Surgical History: No Surg Hx - Family History Family History: States: Unknown Family Hx - Social History Current smoker - smoking cessation education provided: No Alcohol: None Drugs: Denies - Home Medications Home Medications: Ambulatory Orders Medication Instructions Recorded LORazepam [Ativan] 0.5 mg PO Q12 #60 tab 03/16/17 Sertraline [Zoloft] 50 mg PO DAILY #30 tab 03/16/17 Nitrofurantoin Macrocrystals 100 mg PO BID #14 cap 05/05/17 [Macrobid] - Allergies Allergies/Adverse Reactions: Allergies Allergy/AdvReac Type Severity Reaction Status Date / Time aspirin Allergy RASH Verified 05/05/17 09:16 Penicillins Allergy RASH Verified 05/05/17 09:16 Review of Systems ROS Statement: Except As Marked, All Systems Reviewed And Found Negative Physical Exam - Reviewed Nursing Documentation Reviewed: Yes Vital Signs Reviewed: Yes - Physical Exam Neurologic/Psych: Positive for: Alert, Oriented (x 2), Mood/Affect (anxious), Other (poor thought process and judgment). Negative for: Motor/Sensory Deficits - Laboratory Results Result Diagrams: 07/06/17 00:53 - ECG O2 Sat by Pulse Oximetry: 98 (RA) Pulse Ox Interpretation: Normal Medical Decision Making Medical Decision Making: Time: 23:14 Impression: AMS, bizarre behavior Differentials include but are not limited to: psychosis depression electrolyte abnormality, metabolic encephalopathy, brain mass dementia Initial Plan: --Blood type and screen --Ct Head w/o conrast --EKG --Alcohol serum --CMP --urine drug --Magnesium --Phosphorus --Thyroid stimulating hormone --Urine dip -- CBC --Ptt --Prothrombin --Ativan 2 mg IM --Ativan 2 mg IM --Haldol 5 mg IM --Haldol 5 mg IM --1:1 observation Scribe Attestation: Documented by Lisseth Fermin, acting as a scribe for Verenice Collado MD. Provider Scribe Attestation: All medical record entries made by the Scribe were at my direction and personally dictated by me. I have reviewed the chart and agree that the record accurately reflects my personal performance of the history, physical exam, medical decision making, and the department course for this patient. I have also personally directed, reviewed, and agree with the discharge instructions and disposition. Disposition - Patient ED Disposition Is Patient to be Admitted: Transfer of Care - Disposition Disposition: Transfer of Care Disposition Time: 00:00 Condition: STABLE Patient Signed Over To: Jose Alberto Gallardo
[2017-07-06 01:26] LABS: PROTHROMBIN TIME 11.3 Seconds (9.8-13.1)
--- NOTE | 2017-07-06 01:45 | CT ---
EXAM: CT Head Without Intravenous Contrast CLINICAL HISTORY: 76 years old, female; Signs and symptoms; Altered mental status/memory loss TECHNIQUE: Axial computed tomography images of the head/brain without intravenous contrast. All CT scans at this facility use one or more dose reduction techniques, viz.: automated exposure control; ma/kV adjustment per patient size (including targeted exams where dose is matched to indication; i.e. head); or iterative reconstruction technique. Coronal and sagittal reformatted images were created and reviewed. COMPARISON: No relevant prior studies available. FINDINGS: Brain: [id number] atrophy. No intracranial hemorrhage. No mass. Calcifications of basal ganglia and cerebellum. Few scattered foci of decreased attenuation within periventricular/subcortical white matter. No definite edema. Ventricles: No hydrocephalus. Bones/joints: No acute fracture. Bony hypertrophy of left maxillary sinus. Soft tissues: Unremarkable. Vasculature: Atherosclerotic disease of intracranial arteries. Sinuses: Near complete opacification/inspissated mucous of LEFT maxillary sinus. Mild mucosal thickening of LEFT frontal sinus. Scattered minimal mucosal thickening of ethmoid sinuses. Mastoid air cells: No mastoid effusion. Orbits: Unremarkable as visualized. IMPRESSION: 1. Nonspecific white matter changes. Acute infarction may be CT occult within first 24 hours. If a focal deficit persists, consider followup CT or MRI for further evaluation. 2. Sinus disease. 3. Incidental/non-acute findings are described above.
--- NOTE | 2017-07-06 01:55 | ED PDOC ---
- Laboratory Results Result Diagrams: 07/06/17 00:53 07/06/17 00:53 - ECG O2 Sat by Pulse Oximetry: 98 (RA) Medical Decision Making Medical Decision Making: Time: 00:00 --transferred to ms pending ER workup and crisis evaluation if necessary. Labs reviewed show no clinically significant abnormalities CT Head NAD Pt evaluated by crisis who feel she is stable for discharge home Diagnosis is depression and anxiety Disposition - Clinical Impression Clinical Impression: Anxiety, Depression - POA Present On Arrival: None - Disposition Disposition: Routine/Home Disposition Time: 06:57 Condition: STABLE Instructions: Depression (ED), Anxiety (ED) Forms: [facility] (Estonian)
[2017-07-06 04:55] VITALS: BP 111/52; PULSE 65; TEMP 97.6
[2017-07-06 06:58] VITALS: O2SAT 98
[2017-07-06 07:33] VITALS: RESP 18
== END 2017-07-06 07:30 | disposition home or self-care (01) ==
LOC: H.ER 22:17
DX: F32.9 Major depressive disorder, single episode, unspecified (principal); F41.9 Anxiety disorder, unspecified; Z88.0 Allergy status to penicillin
CPT/HCPCS: 70450; 80053; 83735; 84100; 84443; 85025; 85610; 85730; 86850; 86900; 96372; 99283; G0480; J1630; J2060

== ENCOUNTER 2017-07-07 11:04 | Inpatient (IN) | payer MEDICARE ==
[2017-07-07 11:55] VITALS: BMI 17.6
[2017-07-07 11:59] VITALS: O2SAT 98
--- NOTE | 2017-07-07 12:32 | ED PDOC ---
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 Patient was in the lobby of her apartment building when she felt anxious, so her daughter called EMS. She states she was very anxious today but does not know why, and denies depression, suicidal ideation, or homicidal ideation. She has no complaints currently. PMD: None Past Medical History Reviewed: Historical Data, Nursing Documentation, Vital Signs Vital Signs: Last Vital Signs Temp 98.1 F 07/07/17 11:55 Pulse 81 07/07/17 11:55 Resp 18 07/07/17 11:55 BP Pulse Ox 98 07/07/17 11:55 - Medical History PMH: Anxiety Denies: Diabetes, Hepatitis, HIV, HTN, Seizures, Sexually Transmitted Disease - Surgical History Surgical History: Tonsillectomy - Family History Family History: States: Unknown Family Hx - Social History Alcohol: Social - Home Medications Home Medications: Ambulatory Orders Medication Instructions Recorded No Known Home Med 07/06/17 - Allergies Allergies/Adverse Reactions: Allergies Allergy/AdvReac Type Severity Reaction Status Date / Time aspirin Allergy RASH Verified 05/05/17 09:16 Penicillins Allergy RASH Verified 05/05/17 09:16 Review of Systems ROS Statement: Except As Marked, All Systems Reviewed And Found Negative Psych: Positive for: Anxiety (resolved) Physical Exam - Reviewed Nursing Documentation Reviewed: Yes Vital Signs Reviewed: Yes - Physical Exam Appears: Positive for: Well, Non-toxic, No Acute Distress Head Exam: Positive for: ATRAUMATIC, NORMOCEPHALIC Skin: Positive for: Normal Color, Warm, Dry Eye Exam: Positive for: EOMI, Normal appearance, PERRL Neck: Positive for: Normal, Painless ROM Cardiovascular/Chest: Positive for: Regular Rate, Rhythm Respiratory: Negative for: Respiratory Distress Gastrointestinal/Abdominal: Positive for: Soft. Negative for: Tenderness Extremity: Positive for: Normal ROM. Negative for: Pedal Edema, Deformity Neurologic/Psych: Positive for: Alert, Oriented - Laboratory Results Result Diagrams: 07/07/17 16:55 07/07/17 16:55 - ECG O2 Sat by Pulse Oximetry: 98 (RA) Pulse Ox Interpretation: Normal Medical Decision Making Medical Decision Making: Time: 12:21 Initial Impression: Anxiety Initial Plan: --Crisis Evaluation Time: 14:00 --On crisis evaluation, the team found out daughter called [facility] [employer], who saw patient. [facility], which is [facility] affiliated, recommended screening for involuntary admission due to patient exhibiting paranoid behavior --Crisis evaluation still pending Time: 16:07 --EKG --Alcohol Serum --BMP --Urine Drug Screen --Urine Dip --CBC --Chest XR Vital signs are stable. Labs reviewed. In my opinion there are no current acute medical conditions that contraindicate the placement of this patient in a psychiatric unit. Scribe Attestation: Documented by Eugenio Honeycutt, acting as a scribe for Dr. Kimberlee De La Rosa MD. Provider Scribe Attestation: All medical record entries made by the Scribe were at my direction and personally dictated by me. I have reviewed the chart and agree that the record accurately reflects my personal performance of the history, physical exam, medical decision making, and the department course for this patient. I have also personally directed, reviewed, and agree with the discharge instructions and disposition. Disposition - Clinical Impression Clinical Impression: Anxiety - Patient ED Disposition Is Patient to be Admitted: Yes Discussed With : John Mckeon - Disposition Disposition Time: 19:00 Condition: FAIR - Pt Status Changed To: Hospital Disposition Of: Inpatient - Admit Certification Admit to Inpatient:: After my assessment, the patient will require hospitalization for at least two midnights. This is because of the severity of symptoms shown, intensity of services needed, and/or the medical risk in this patient being treated as an outpatient. - POA Present On Arrival: None
[2017-07-07 17:15] LABS: BASO % 0.5 % (0.0-2.0); EOS # 0.1 K/uL (0.0-0.7); EOS % 1.1 % (0.0-4.0); HEMOGLOBIN 11.9 g/dL (12.0-16.0); LYMPH # 1.1 K/uL (1.0-4.3); LYMPH % 17.1 % (20.0-40.0); MEAN CELL VOLUME 96.1 fl (81.0-99.0); MEAN CORPUSCULAR HGB CONC 32.3 g/dL (33.0-37.0); MEAN PLATELET VOLUME 8.5 fl (7.2-11.7); MONO # 0.6 K/uL (0.0-0.8); NEUT # 4.4 K/uL (1.8-7.0); NEUT % 71.3 % (50.0-75.0); RBC 3.84 Mil/uL (3.80-5.20); RED CELL DISTRIBUTION WIDTH 13.9 % (11.5-14.5); WHITE BLOOD COUNT 6.2 K/uL (4.8-10.8)
[2017-07-07 17:32] LABS: BLOOD UREA NITROGEN 15 mg/dl (7-17); CALCIUM 8.5 mg/dL (8.4-10.2); GFR AFRICAN-AMERICAN > 60; GFR NON-AFRICAN AMERICAN > 60
[2017-07-07 17:51] LABS: BARBITURATES, UR NEGATIVE (NEGATIVE); BENZODIAZEPINES, UR NEGATIVE (NEGATIVE); OPIATES, UR NEGATIVE (NEGATIVE); PHENCYCLIDINE, UR NEGATIVE (NEGATIVE)
[2017-07-07] MEDS ORDERED: Alum-Mag Hydrox-Simethicone Susp (30 mL) PO PRN (20:09)
[2017-07-07] MEDS: Magnesium Hydroxide Susp 30 ml UD PO PRN (21:07)
--- NOTE | 2017-07-08 01:33 | PCM.BM ---
<Shanthi Berrya Neville - Last Filed: 07/08/17 01:31> Treatment Plan Problems - Problems identified on initial assessmt Delusions Date Initiated: 07/08/17 Time Initiated: 01:32 Assessment reference: NA Status: Active Altered Sleep Patterns Date Initiated: 07/08/17 Time Initiated: 01:33 Assessment reference: NA Status: Active Treatment assets and liabiliti Patient Assests: ADL independent, physically healthy, negotiates basic needs Patient Liabilities: live alone, relationship conflicts, imparied memory - Milieu Protocol Maintain good personal hygiene: daily Encourage regular showers, daily Remind patient to perform daily oral care, daily Assist patient to perform ADL's Conduct patient checks and document Observation sheet: Q15 minutes Maintain personal safety: every shift Educate patient to report safety concerns to staff, every shift Monitor environment for contraband/sharps Medication safety: Monitor for expected outcome, potential side effects: every shift, Assess barriers to learning: every shift, Assess readiness for medication education: every shift <Katie Perez - Last Filed: 07/12/17 11:24> - Diagnosis (1) Major depressive disorder with psychotic features Status: Acute Interventions: Medication management, Individual and group therapy, Psychoeducation 07/12/17 11:24 <Remedios Parrish - Last Filed: 07/12/17 12:33> Family Contact Family contact: Family has been contacted by patient, Patient declines to allow family contact at present Family contact name: Cristy - daughter Family contacted how many times per week?: 2 Family contact comment: [phone] - Outside Agency Dr. Di Jensen MD Care involvment: Not involved Discharge/Continuing Care - Education Needs Education Needs: Family Medication, Family Diagnosis/Disease Process, Family Coping Skills, Family Placement options, Family Community resources, Family Activities of Daily Living, Family Health Practices/Safety, Family Personal Hygiene/Grooming, Family Aftercare Safety Plan, Patient Medication, Patient Diagnosis/Disease Process, Patient Coping Skills, Patient Placement options, Patient Community resources, Patient Activities of Daily Living, Patient Health Practices/Safety, Patient Personal Hygiene/Grooming, Patient Aftercare Safety Plan - Discharge Discharge Criteria: Tolerates medication w/o severe side effects, Free of paranoid thoughts, Free of agitation, Normal sleep pattern, Ability to care for self, Reduction of target symptoms Discharge to:: Home, With Family - Additional Comments 07/12/17 12:19 Pt seen and discussed in team meeting. Reason for admission reviewed and discussed. Pt reported feeling "not so good." Pt reported she was referred tot hospital because she was sleeping in the lobby of her building and the landlord "did not like that very much." Pt reported reason for sleeping in the lobby of her building as "maybe loneliness, isolation and even delusional, almost like schizophrenia." Pt asked to further discuss her "delusions." Pt reported "like repetitious incidents." Pt described an incident where she would see a woman wave good-bye to her but then would go tot he door and there was no- one to wave too. Pt also reported "slipping" on her bills because of her depression. Pt reported not paying her [employer] bill and since then the "electricity is winding down." Pt reported she is fearful that she will be evicted because she was sleeping in the lobby and not paying her [employer] bill. Pt' s medications reviewed and discussed at length with attending psychiatrist. Please refer to psychiatric progress note for additional information. Pt was easily distracted and poor concentration. Pt appears to be her stated age, but fragile. Pt appears to be under weight. Pt is agreeable to a sheet mill supervisor consult. Pt signed consent form for procedure writer to speak to her daughter, Cristy; however, only when the daughter visits her on the unit and she is present. Pt stated "she won' t have nice things to say about me." Rn Unit Manager will continue to follow case. - Treatment Team Participation Discussed with Family/SO: No Was Patient/Family/SO present at Treatment Team Meeting: Yes
--- NOTE | 2017-07-08 10:59 | CARD ---
APPROVED REPORT EKG Measurement Heart [id number] <Conclusion> Normal sinus rhythm Normal ECG
[2017-07-08 13:20] LABS: IRON 90 ug/dL (37-170)
--- NOTE | 2017-07-08 13:32 | CP.PCM.CON ---
<Dayne Cabezas - Last Filed: 07/08/17 13:42> History of Present Illness - History of Present Illness History of Present Illness: Hospitalist Consult Note- Dr. Berger 76 y.o female with PMH of obsessive compulsive disorder, depression, anxiety seen and evaluated at bedside in psychiatry unit after consult for medical evaluation. Patient was bought to ED yesterday by EMS after daughter called because patient was extremely anxious. Patient was admitted for anxiety. During visitation, patient reports that she is feeling tired and would like to sleep. Patient denies nausea, vomiting, shortness of breath, chills, or chest pain. Patient denies calf pain. When asked if she is having any pain or concerns/ problems, patient answered no. Full history unable to obtain to patient being uncooperative. Past Patient History - Past Social History Alcohol: Social - CARDIAC Hx Hypertension: No - PULMONARY Hx Tuberculosis: No - NEUROLOGICAL Hx Seizures: No - HEENT Hx HEENT Problems: No - RENAL Hx Chronic Kidney Disease: No - ENDOCRINE/METABOLIC Hx Endocrine Disorders: No - HEMATOLOGICAL/ONCOLOGICAL Hx Blood Disorders: No Hx Human Immunodeficiency Virus (HIV): No - INTEGUMENTARY Hx Dermatological Problems: No - MUSCULOSKELETAL/RHEUMATOLOGICAL Hx Falls: No - GASTROINTESTINAL Hx Gastrointestinal Disorders: No - GENITOURINARY/GYNECOLOGICAL Hx Sexually Transmitted Disorders: No - PSYCHIATRIC Hx Anxiety: Yes Hx Depression: Yes Hx Substance Use: No - SURGICAL HISTORY Hx Tonsillectomy: Yes - ANESTHESIA Hx Anesthesia: No Meds Allergies/Adverse Reactions: Allergies Allergy/AdvReac Type Severity Reaction Status Date / Time aspirin Allergy RASH Verified 05/05/17 09:16 Penicillins Allergy RASH Verified 05/05/17 09:16 - Medications Medications: Current Medications Acetaminophen (Tylenol 325mg Tab) 650 mg PO Q4 PRN PRN Reason: Pain, moderate (4-7) Al Hydrox/Mg Hydrox/Simethicone (Maalox Plus 30 Ml) 30 ml PO Q4 PRN PRN Reason: Dyspepsia Lorazepam (Ativan) 0.5 mg PO HS PRN PRN Reason: Insomnia Stop: 07/21/17 20:10 Last Admin: 07/07/17 21:07 Dose: 0.5 mg Lorazepam (Ativan) 0.5 mg PO Q6 PRN PRN Reason: Anixety/Agitation Stop: 07/21/17 20:10 Magnesium Hydroxide (Milk Of Magnesia) 30 ml PO HS PRN PRN Reason: Constipation Last Admin: 07/07/17 21:07 Dose: 30 ml Physical Exam - Constitutional Appears: Well, Non-toxic, No Acute Distress - Head Exam Head Exam: ATRAUMATIC, NORMOCEPHALIC - Eye Exam Eye Exam: EOMI, Normal appearance, PERRL Pupil Exam: NORMAL ACCOMODATION, PERRL - ENT Exam ENT Exam: Mucous Membranes Moist, Normal Exam - Neck Exam Neck exam: Positive for: Full Rom, Normal Inspection - Respiratory Exam Respiratory Exam: Clear to Auscultation Bilateral, NORMAL BREATHING PATTERN. absent: Rales, Rhonchi, Wheezes, Respiratory Distress, Stridor - Cardiovascular Exam Cardiovascular Exam: REGULAR RHYTHM, +S1, +S2 - GI/Abdominal Exam GI & Abdominal Exam: Normal Bowel Sounds, Soft. absent: Tenderness - Extremities Exam Extremities exam: Negative for: calf tenderness Additional comments: No pain with palpation or squeeze with the calf. Temperature gradient WNL CFT < 3 seconds to digits - Neurological Exam Neurological exam: Alert, Oriented x3 - Psychiatric Exam Psychiatric exam: Depressed, Flat Affect - Skin Skin Exam: Dry, Intact, Normal Color, Warm Results - Vital Signs Recent Vital Signs: Last Vital Signs Temp 98.7 F 07/07/17 19:29 Pulse 67 07/07/17 19:29 Resp 18 07/07/17 19:29 BP 134/60 07/07/17 19:29 Pulse Ox 98 07/07/17 19:29 - Labs Result Diagrams: 07/07/17 16:55 07/07/17 16:55 Labs: Laboratory Results - last 24 hr 07/07/17 07/07/17 07/07/17 16:55 16:55 17:15 WBC 6.2 RBC 3.84 Hgb 11.9 L Hct 36.9 MCV 96.1 MCH 31.0 MCHC 32.3 L RDW 13.9 Plt Count 260 MPV 8.5 Neut % (Auto) 71.3 Lymph % (Auto) 17.1 L [place] % (Auto) 10.0 Eos % (Auto) 1.1 Baso % (Auto) 0.5 Neut # (Auto) 4.4 Lymph # (Auto) 1.1 [place] # (Auto) 0.6 Eos # (Auto) 0.1 Baso # (Auto) 0.0 Sodium 142 Potassium 3.9 Chloride 106 Carbon Dioxide 24 Anion Gap 16 BUN 15 Creatinine 0.6 L Est GFR ( Amer) > 60 Est GFR (Non-Af Amer) > 60 POC Glucose (mg/dL) Random Glucose 108 H Calcium 8.5 Iron Triglycerides Cholesterol HDL Cholesterol Urine Opiates Screen Negative Urine Methadone Screen Negative Ur Barbiturates Screen Negative Ur Phencyclidine Scrn Negative Ur Amphetamines Screen Negative U Benzodiazepines Scrn Negative U Oth Cocaine Metabols Negative U Cannabinoids Screen Negative Alcohol, Quantitative < 10 07/07/17 07/08/17 07/08/17 17:32 12:53 12:53 WBC RBC Hgb Hct MCV MCH MCHC RDW Plt Count MPV Neut % (Auto) Lymph % (Auto) [place] % (Auto) Eos % (Auto) Baso % (Auto) Neut # (Auto) Lymph # (Auto) [place] # (Auto) Eos # (Auto) Baso # (Auto) Sodium Potassium Chloride Carbon Dioxide Anion Gap BUN Creatinine Est GFR ( Amer) Est GFR (Non-Af Amer) POC Glucose (mg/dL) 92 Random Glucose Calcium Iron 90 Triglycerides 121 Cholesterol 210 H HDL Cholesterol 59 Urine Opiates Screen Urine Methadone Screen Ur Barbiturates Screen Ur Phencyclidine Scrn Ur Amphetamines Screen U Benzodiazepines Scrn U Oth Cocaine Metabols U Cannabinoids Screen Alcohol, Quantitative Assessment & Plan - Assessment and Plan (Free Text) Assessment: 76 y.o female with PMH of obsessive compulsive disorder, depression, anxiety admitted for anxiety Plan: 1. Anxiety -continue management by psychiatry <Shaneka Scnalon - Last Filed: 07/08/17 15:47> Meds - Medications Medications: Current Medications Acetaminophen (Tylenol 325mg Tab) 650 mg PO Q4 PRN PRN Reason: Pain, moderate (4-7) Al Hydrox/Mg Hydrox/Simethicone (Maalox Plus 30 Ml) 30 ml PO Q4 PRN PRN Reason: Dyspepsia Lorazepam (Ativan) 0.5 mg PO HS PRN PRN Reason: Insomnia Stop: 07/21/17 20:10 Last Admin: 07/07/17 21:07 Dose: 0.5 mg Lorazepam (Ativan) 0.5 mg PO Q6 PRN PRN Reason: Anixety/Agitation Stop: 07/21/17 20:10 Magnesium Hydroxide (Milk Of Magnesia) 30 ml PO HS PRN PRN Reason: Constipation Last Admin: 07/07/17 21:07 Dose: 30 ml Results - Vital Signs Recent Vital Signs: Last Vital Signs Temp 98.7 F 07/07/17 19:29 Pulse 67 07/07/17 19:29 Resp 18 07/07/17 19:29 BP 134/60 07/07/17 19:29 Pulse Ox 98 07/07/17 19:29 - Labs Result Diagrams: 07/07/17 16:55 07/07/17 16:55 Labs: Laboratory Results - last 24 hr 07/07/17 07/07/17 07/07/17 16:55 16:55 17:15 WBC 6.2 RBC 3.84 Hgb 11.9 L Hct 36.9 MCV 96.1 MCH 31.0 MCHC 32.3 L RDW 13.9 Plt Count 260 MPV 8.5 Neut % (Auto) 71.3 Lymph % (Auto) 17.1 L [place] % (Auto) 10.0 Eos % (Auto) 1.1 Baso % (Auto) 0.5 Neut # (Auto) 4.4 Lymph # (Auto) 1.1 [place] # (Auto) 0.6 Eos # (Auto) 0.1 Baso # (Auto) 0.0 Sodium 142 Potassium 3.9 Chloride 106 Carbon Dioxide 24 Anion Gap 16 BUN 15 Creatinine 0.6 L Est GFR ( Amer) > 60 Est GFR (Non-Af Amer) > 60 POC Glucose (mg/dL) Random Glucose 108 H Calcium 8.5 Iron TIBC % Saturation Ferritin Triglycerides Cholesterol LDL Cholesterol Direct HDL Cholesterol Vitamin B12 Free T4 Thyroxine (T4) TSH 3rd Generation Urine Opiates Screen Negative Urine Methadone Screen Negative Ur Barbiturates Screen Negative Ur Phencyclidine Scrn Negative Ur Amphetamines Screen Negative U Benzodiazepines Scrn Negative U Oth Cocaine Metabols Negative U Cannabinoids Screen Negative Alcohol, Quantitative < 10 07/07/17 07/08/17 07/08/17 17:32 12:53 12:53 WBC RBC Hgb Hct MCV MCH MCHC RDW Plt Count MPV Neut % (Auto) Lymph % (Auto) [place] % (Auto) Eos % (Auto) Baso % (Auto) Neut # (Auto) Lymph # (Auto) [place] # (Auto) Eos # (Auto) Baso # (Auto) Sodium Potassium Chloride Carbon Dioxide Anion Gap BUN Creatinine Est GFR ( Amer) Est GFR (Non-Af Amer) POC Glucose (mg/dL) 92 Random Glucose Calcium Iron 90 TIBC 295 % Saturation 31 Ferritin 79.8 Triglycerides 121 Cholesterol 210 H LDL Cholesterol Direct 119 HDL Cholesterol 59 Vitamin B12 268 Free T4 Thyroxine (T4) 8.91 TSH 3rd Generation 1.00 Urine Opiates Screen Urine Methadone Screen Ur Barbiturates Screen Ur Phencyclidine Scrn Ur Amphetamines Screen U Benzodiazepines Scrn U Oth Cocaine Metabols U Cannabinoids Screen Alcohol, Quantitative 07/08/17 12:53 WBC RBC Hgb Hct MCV MCH MCHC RDW Plt Count MPV Neut % (Auto) Lymph % (Auto) [place] % (Auto) Eos % (Auto) Baso % (Auto) Neut # (Auto) Lymph # (Auto) [place] # (Auto) Eos # (Auto) Baso # (Auto) Sodium Potassium Chloride Carbon Dioxide Anion Gap BUN Creatinine Est GFR ( Amer) Est GFR (Non-Af Amer) POC Glucose (mg/dL) Random Glucose Calcium Iron TIBC % Saturation Ferritin Triglycerides Cholesterol LDL Cholesterol Direct HDL Cholesterol Vitamin B12 Free T4 0.85 Thyroxine (T4) TSH 3rd Generation Urine Opiates Screen Urine Methadone Screen Ur Barbiturates Screen Ur Phencyclidine Scrn Ur Amphetamines Screen U Benzodiazepines Scrn U Oth Cocaine Metabols U Cannabinoids Screen Alcohol, Quantitative Attending/Attestation - Attestation I have personally seen and examined this patient.: Yes I have fully participated in the care of the patient.: Yes I have reviewed all pertinent clinical information: Yes Notes (Text): 07/08/17 15:47 Seen, examined, discussed with resident Dr. Cabezas, agree with findings and plan as above.
[2017-07-08 13:34] LABS: % IRON SATURATION 31 % (20-55); TOTAL IRON BINDING CAPACITY 295 ug/dL (250-450)
[2017-07-08 13:37] LABS: T4 8.91 ug/dl (5.5-11.0)
[2017-07-08 13:54] LABS: FERRITIN 79.8 ng/Ml (11.1-264.0)
--- NOTE | 2017-07-08 18:01 | PCM.PSYCH ---
Initial Psychiatric Evaluation - Initial Psychiatric Evaluation Chief Complaint (in patient's own words): was feeling anxious , did not know what was going on, i was in the lobby of my building was not sure if not taking medications, chronic history of insomnia Patient's Reaction to Hospitalization: pt signed in voluntarily History of Present Illness and Precipitating Events: [facility] after pt's daughter reportedly was called by building staff after pt was found in lobby laying pt reports was worried that people were trying to pump poison in to her apartment Current Medications: Active Medications Generic Name Dose Route Start Last Admin Trade Name Freq PRN Reason Stop Dose Admin Acetaminophen 650 mg 07/07/17 20:09 Tylenol 325mg Tab PO Q4 PRN Pain, moderate (4-7) Al Hydrox/Mg Hydrox/Simethicone 30 ml 07/07/17 20:09 Maalox Plus 30 Ml PO Q4 PRN Dyspepsia Lorazepam 0.5 mg 07/07/17 20:09 07/07/17 21:07 Ativan PO 07/21/17 20:10 0.5 mg HS PRN Administration Insomnia Lorazepam 0.5 mg 07/07/17 20:09 Ativan PO 07/21/17 20:10 Q6 PRN Anixety/Agitation Magnesium Hydroxide 30 ml 07/07/17 20:09 07/07/17 21:07 Milk Of Magnesia PO 30 ml HS PRN Administration Constipation Past Psychiatric History - Past Psychiatric History Prior Professional Help: [facility], depression History of Family Illness: family hx of alzheimer's dementia Pertinent Medical Hx (Current Medical&Sleep Prob, Allergies): Allergies Allergy/AdvReac Type Severity Reaction Status Date / Time aspirin Allergy RASH Verified 05/05/17 09:16 Penicillins Allergy RASH Verified 05/05/17 09:16 No Known Home Med 07/06/17 Review of Systems - Psychiatric Psychiatric: Abnormal Sleep Pattern, Anxiety, Depression, Paranoia Mental Status Examination - Personal Presentation Personal Presentation: Looks stated age - Affect Affect: Broad - Motor Activity Additional comments: varied at times states feeling ok, when attempted to see pt pt although respectful pt dismisses then approaches this promotion writer behind nurse's station, requests to have previously taken lorazepam 0.5mg po bid to 1mg po hs (standing ) - Formal Thought Process Formal Thought Process: Paranoia (paranoia) DSM 5 DX - DSM 5 DSM 5 Diagnosis: 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 bipolar - Recommended/Plan of Treatment Treatment Recommendations and Plan of Treatment: inpt adm per attending vital signs and clinical observation per protocol and per attending hospitalist consult nutrition consult will restart lorazepam 1mg po hs (with holding perameters ) zoloft 50mg po am lorazepam 1mg po hs prn anxiety insomnia prns per protocol unit discharge planning in progress ?medical day program Projected ELOS: 5-7 days Prognosis: guarded Discharge Plan and Discharge Criteria: safety - Smoking Cessation Smoking Cessation Initiated: No Reason for not providing: deferred
--- NOTE | 2017-07-09 20:00 | PCM.PYCHPN ---
Psychiatric Progress Note - Psychiatric Progress Note Patient seen today, length of contact: chart reviewed, Patient Chief Complaint: having a tough day, feeling depressed, staff report pt has been using walking with wheels and seat. pt is noted to have somewhat evasive eye contact. staff report although patient has been adherent with treatment times is isolative. Problems Identified/Issues Discussed: Social Work Note Reviewed from today as noted today for collateral informtion: " Pt is a 76 y.o., , female, who was admitted to 3 due to worsened paranoia and delusional thought process. Pt was initially referred to the ED by [facility] from [facility]. Pt reported reason for admission as I was sitting in the lobby at all times of the day. The landlord didnt like that. When asked why she was not in her apartment, pt stated I guess loneliness and something oppressive feeling. Pt was guarded and vague with responses. Pt was superficially cooperative with assessment. Rubber Mill Operator inquired about paranoia and pt denied. Pt stated can I go back to napping now? Pt denied sleeping in the lobby and hallways of the building. Pt reported she was only sitting there for short period of times. Pt reported that the electricity was making a weird sound and she believes it was bc she forgot to pay last months utility bill. Pt reported that her memory in the past month is not ok. Per crisis assessment , landlord contacted [facility] and pt was referred to the ED. Pt was wandering the hallways and refusing to go into her apartment. Pt was sleeping in the back hallways for several weeks, and sometimes in the main lobby with her pillow and blankets. Pt believes that she is going to be evicted and that [employer] is going to turn off her electricity. Pt believes that there is something wrong in the apartment. Pt believes that everyone is stealing from her. While in the ED pt refused to give staff members her pocketbook to put in the safe; pt was carrying large amount of money with her. Pts daughter was contacted and pt was able to give her the pocketbook. Pt appeared paranoid in the ED and highly anxious. Pt was previously admitted to [facility] in February 2017 due to increased and uncontrollable anxiety and depression. Pt also reported 3-4x ED visits, evaluated and discharged back home. Pt reported hx of OPD treatment approximately 13-14 years ago after having a nervous breakdown. Pt reported she followed up with Dr. Di Jensen MD after discharge in February 2017; however only saw the psychiatrist once. Pt reported we didnt get along. Pt reported medication non-compliance since March 2017. Pt is currently not linked to any services. No known hx of suicide attempts. No known hx of self- injury bxs. No known hx of aggressive/assaultive bxs". Medical Problems: per chart Diagnostic Results: per psychiatry per medicine per nursing per social work DSM 5 Symptoms Update: decreased mood, ?paranoia, decreased sleep Medication Change: No Medical Record Reviewed: Yes Consults ordered or reviewed: pt being seen by hospitalist Mental Status Examination - Cognitive Function Orientation: Person, Place, Situation Memory: Impaired Attention: WNL Concentration: WNL Association: WNL Fund of Knowledge: WN Decription of patient's judgement and insights: impaired - Affect Affect: Constricted - Speech Speech: Soft - Formal Thought Process Formal Thought Process: Paranoia (paranoia) - Suicidal Ideation Plan: ideations, contracts for safety - Homicidal Ideation Homicidal Ideation: No Goal/Treatment Plan - Goal/Treatment Plan Need for Continued Stay: Remain at risks for inpatient hospitalization, Severe depression anxiety, Discharge may exacerbated symptoms Progress Toward Problem(s) and Goals/Treatment Plan: inpt milieu vital signs and clinical observation per protocol and per clinical status adjust meds per clinical status falls precautions discharge planning in progress ?medical day program/ICMS Estimated Date of D/C: 07/16/17 - Smoking Cessation Smoking Cessation Initiated: No Reason for not providing: pt defers
--- NOTE | 2017-07-11 16:51 | PCM.PYCHPN ---
Psychiatric Progress Note - Psychiatric Progress Note Patient seen today, length of contact: chart reviewed, Patient Chief Complaint: having a better day, somewhat less depressed, staff report pt has been coming out to have meals then going back in room, does verbalize that current lorazepam regimen is working better. nursing reports that pt has been fairly adherent with treatment some redirection with adls (e.g. coving back side of gowm). Problems Identified/Issues Discussed: alteration in mood alteration in sleep alteration in coping Medical Problems: per chart Diagnostic Results: per psychiatry per medicine per nursing per social work DSM 5 Symptoms Update: anxiety sleep improving somewhat Medication Change: No Medical Record Reviewed: Yes Consults ordered or reviewed: pt being followed by hospitalist Mental Status Examination - Cognitive Function Orientation: Person, Place, Situation Memory: Impaired Attention: WNL Concentration: WNL Association: WNL Fund of Knowledge: [facility] Decription of patient's judgement and insights: impaired - Affect Affect: Broad - Speech Speech: Soft - Formal Thought Process Formal Thought Process: Paranoia (paranoia) - Homicidal Ideation Homicidal Ideation: No Goal/Treatment Plan - Goal/Treatment Plan Need for Continued Stay: Remain at risks for inpatient hospitalization, Severe depression anxiety, Discharge may exacerbated symptoms Progress Toward Problem(s) and Goals/Treatment Plan: inpt milieu vital signs and clinical observation per protocol and per clinical status adjust meds per clinical status falls precautions discharge planning in progress ?medical day program/ICMS Estimated Date of D/C: 07/16/17 - Smoking Cessation Smoking Cessation Initiated: No Reason for not providing: pt defers
--- NOTE | 2017-07-11 16:56 | PCM.PYCHPN ---
Psychiatric Progress Note - Psychiatric Progress Note Patient seen today, length of contact: chart reviewed, Patient Chief Complaint: having a better day, somewhat less depressed, staff report pt has been coming out to have meals then going back in room, does verbalize that current lorazepam regimen is working better. nursing reports that pt has been fairly adherent with treatment some redirection with adls (e.g. coving back side of gown). pt is able to verbalize concerns about temperature in room to team and work with team (i.e. using blankets). Problems Identified/Issues Discussed: alteration in mood alteration in sleep alteration in coping Medical Problems: per chart Diagnostic Results: per psychiatry per medicine per nursing per social work DSM 5 Symptoms Update: improving mood paranoia? (temperature cool in room IT IS) improving coping Medication Change: No Medical Record Reviewed: Yes Consults ordered or reviewed: pt being followed hospitalist Mental Status Examination - Cognitive Function Orientation: Person, Place, Situation Memory: Impaired Attention: WNL Concentration: WNL Association: WNL Fund of Knowledge: WNL Decription of patient's judgement and insights: impaired - Affect Affect: Broad - Speech Speech: Soft - Formal Thought Process Formal Thought Process: Paranoia (paranoia) - Homicidal Ideation Homicidal Ideation: No Goal/Treatment Plan - Goal/Treatment Plan Need for Continued Stay: Remain at risks for inpatient hospitalization, Severe depression anxiety, Discharge may exacerbated symptoms Progress Toward Problem(s) and Goals/Treatment Plan: inpt milieu vital signs and clinical observation per protocol and per clinical status adjust meds per clinical status falls precautions pt maybe exhibiting some personality disorder traits e.g. borderline but not cutting etc at times ?trying to split discharge planning in progress ?medical day program/ICMS Estimated Date of D/C: 07/16/17 - Smoking Cessation Smoking Cessation Initiated: No Reason for not providing: pt defers
--- NOTE | 2017-07-12 11:25 | PCM.PYCHPN ---
Psychiatric Progress Note - Psychiatric Progress Note Patient seen today, length of contact: Patient evaluated, case discussed with team, chart reviewed Patient Chief Complaint: "I'm depressed." Problems Identified/Issues Discussed: Patient reports that she continues to feel anxious and depressed. She has some insight that she may be experiencing psychotic symptoms and states that she thought the events she experienced, such as a fellow tenant waving to her multiple times a day, may have been psychotic. She also discussed her concerns that she may be experiencing electric current or static from the electricity. We discussed starting Risperdal 0.25 mg. r/b/se reviewed. Medication Change: Yes (Start Risperdal 0.25 mg PO HS) Medical Record Reviewed: Yes Consults ordered or reviewed: Medicine consult Mental Status Examination - Cognitive Function Orientation: Person, Place, Situation Memory: Impaired Attention: WNL Concentration: WNL Association: WNL Fund of Knowledge: [facility] Decription of patient's judgement and insights: Improving I/J - Mood Mood: Depressed, Anxious - Affect Affect: Broad - Speech Speech: Soft - Formal Thought Process Formal Thought Process: Delusions, Paranoia (paranoia) Psychotic Thoughts and Behaviors: +Delusions of electric current and mild paranoia - Suicidal Ideation Suicidal Ideation: No - Homicidal Ideation Homicidal Ideation: No Goal/Treatment Plan - Goal/Treatment Plan Need for Continued Stay: Remain at risks for inpatient hospitalization, Severe depression anxiety, Discharge may exacerbated symptoms Progress Toward Problem(s) and Goals/Treatment Plan: MDD w/ psychotic features; patient needs continued hospitalization for treatment and safety -Individual and group therapy -Continue Zoloft 50 mg PO Daily -Start Risperdal 0.25 mg PO HS -Medicine consult -Obtain collateral history from patient's daughter -Disposition planning Estimated Date of D/C: 07/16/17
[2017-07-12 17:47] LABS: FOLATE 10.1 ng/mL
--- NOTE | 2017-07-13 10:51 | PCM.PYCHPN ---
Psychiatric Progress Note - Psychiatric Progress Note Patient seen today, length of contact: Patient evaluated, case discussed with team, chart reviewed Patient Chief Complaint: "I'm depressed." Problems Identified/Issues Discussed: Patient continues to report feeling depressed. She continues to have mild paranoia, but denies current concerns about static electricity. She denies adverse effects to Risperdal. We discussed continuing the titration of Risperdal and she was agreeable. NO AH/VH/SI/HI. Medication Change: Yes (Increase Risperdal to 0.5 mg PO HS) Medical Record Reviewed: Yes Consults ordered or reviewed: Medicine consult Mental Status Examination - Cognitive Function Orientation: Person, Place, Situation, Time Memory: Impaired Attention: WNL Concentration: WNL Association: WNL Fund of Knowledge: [facility] Decription of patient's judgement and insights: Improving I/J - Mood Mood: Depressed, Anxious - Affect Affect: Broad - Speech Speech: Soft - Formal Thought Process Formal Thought Process: Paranoia Psychotic Thoughts and Behaviors: +paranoia - Suicidal Ideation Suicidal Ideation: No - Homicidal Ideation Homicidal Ideation: No Goal/Treatment Plan - Goal/Treatment Plan Need for Continued Stay: Remain at risks for inpatient hospitalization, Severe depression anxiety, Discharge may exacerbated symptoms Progress Toward Problem(s) and Goals/Treatment Plan: MDD w/ psychotic features; patient needs continued hospitalization for treatment and safety -Individual and group therapy -Continue Zoloft 50 mg PO Daily -Increase Risperdal to 0.5 mg PO HS -Medicine consult -Obtain collateral history from patient's daughter -Disposition planning Estimated Date of D/C: 07/16/17
--- NOTE | 2017-07-14 11:55 | PCM.PYCHPN ---
Psychiatric Progress Note - Psychiatric Progress Note Patient seen today, length of contact: Patient evaluated, case discussed with team, chart reviewed Patient Chief Complaint: "I'm depressed." Problems Identified/Issues Discussed: Patient continues to report feeling depressed. She continues to believe that the she was affected by electricity (static) in her old apartment, but does not feel affected by it here in the hospital. She reports improved sleep. She denies adverse effects to Risperdal. NO AH/VH/SI/HI. Medication Change: No Medical Record Reviewed: Yes Consults ordered or reviewed: Medicine consult, Dietitian referral Mental Status Examination - Cognitive Function Orientation: Person, Place, Situation, Time Memory: Impaired Attention: WNL Concentration: WNL Association: WNL Fund of Knowledge: [facility] Decription of patient's judgement and insights: Improving I/J - Mood Mood: Depressed, Anxious - Affect Affect: Broad - Speech Speech: Soft - Formal Thought Process Formal Thought Process: Delusions, Paranoia Psychotic Thoughts and Behaviors: +paranoia - Suicidal Ideation Suicidal Ideation: No - Homicidal Ideation Homicidal Ideation: No Goal/Treatment Plan - Goal/Treatment Plan Need for Continued Stay: Remain at risks for inpatient hospitalization, Severe depression anxiety, Discharge may exacerbated symptoms Progress Toward Problem(s) and Goals/Treatment Plan: MDD w/ psychotic features; patient needs continued hospitalization for treatment and safety -Individual and group therapy -Continue Zoloft 50 mg PO Daily -Continue Risperdal 0.5 mg PO HS -Medicine consult -Obtain collateral history from patient's daughter -Disposition planning Estimated Date of D/C: 07/17/17
--- NOTE | 2017-07-15 08:45 | PCM.PYCHPN ---
Psychiatric Progress Note - Psychiatric Progress Note Patient seen today, length of contact: Patient evaluated, case discussed with team, chart reviewed Patient Chief Complaint: "I'm depressed." Problems Identified/Issues Discussed: Patient continues to report feeling depressed, but that her mood is starting to improve. She seems less paranoid and anxious about her delusions about static electricity affecting her in her apartment building. She reports improved sleep. She denies adverse effects to Risperdal. NO AH/VH/SI/HI. Medication Change: No Medical Record Reviewed: Yes Consults ordered or reviewed: Medicine consult, Dietitian referral Mental Status Examination - Cognitive Function Orientation: Person, Place, Situation, Time Memory: Impaired Attention: WNL Concentration: WNL Association: [facility] Fund of Knowledge: [facility] Decription of patient's judgement and insights: Fair I/J - Mood Mood: Depressed, Anxious - Affect Affect: Broad - Speech Speech: Soft - Formal Thought Process Formal Thought Process: Paranoia Psychotic Thoughts and Behaviors: +paranoia - Suicidal Ideation Suicidal Ideation: No - Homicidal Ideation Homicidal Ideation: No Goal/Treatment Plan - Goal/Treatment Plan Need for Continued Stay: Remain at risks for inpatient hospitalization, Severe depression anxiety, Discharge may exacerbated symptoms Progress Toward Problem(s) and Goals/Treatment Plan: MDD w/ psychotic features; patient needs continued hospitalization for treatment and safety -Individual and group therapy -Continue Zoloft 50 mg PO Daily -Continue Risperdal 0.5 mg PO HS -Medicine consult -Obtain collateral history from patient's daughter -Disposition planning Estimated Date of D/C: 07/17/17
[2017-07-15] MEDS ORDERED: Risperidone M tab 0.5MG PO SCH (22:00)
--- NOTE | 2017-07-16 12:20 | PCM.PYCHPN ---
Psychiatric Progress Note - Psychiatric Progress Note Patient seen today, length of contact: Patient evaluated, case discussed with team, chart reviewed Patient Chief Complaint: "I'm depressed." Problems Identified/Issues Discussed: Patient continues to report feeling depressed. She continues to express paranoia about static electricity in her apartment building. She reports poor sleep last night. She denies adverse effects to Risperdal. NO AH/VH/SI/HI. Medication Change: Yes (Risperdal increased to 1 mg PO HS) Medical Record Reviewed: Yes Consults ordered or reviewed: Medicine consult, Dietitian referral Mental Status Examination - Cognitive Function Orientation: Person, Place, Situation, Time Memory: Impaired Attention: WNL Concentration: WNL Association: WN Fund of Knowledge: [facility] Decription of patient's judgement and insights: Fair I/J - Mood Mood: Depressed, Anxious - Affect Affect: Broad - Speech Speech: Soft - Formal Thought Process Formal Thought Process: Paranoia Psychotic Thoughts and Behaviors: +paranoia - Suicidal Ideation Suicidal Ideation: No - Homicidal Ideation Homicidal Ideation: No Goal/Treatment Plan - Goal/Treatment Plan Need for Continued Stay: Remain at risks for inpatient hospitalization, Severe depression anxiety, Discharge may exacerbated symptoms Progress Toward Problem(s) and Goals/Treatment Plan: MDD w/ psychotic features; patient needs continued hospitalization for treatment and safety -Individual and group therapy -Continue Zoloft 50 mg PO Daily -Increase Risperdal to 1 mg PO HS -Medicine consult -Case discussed with patient's daughter -Disposition planning Estimated Date of D/C: 07/19/17
--- NOTE | 2017-07-16 14:52 | PCM.BM ---
Treatment Plan Problems - Problems identified on initial assessmt Delusions Date Initiated: 07/08/17 Time Initiated: 01:32 Assessment reference: NA Status: Active Altered Sleep Patterns Date Initiated: 07/08/17 Time Initiated: 01:33 Assessment reference: NA Status: Active Treatment assets and liabiliti Patient Assests: ADL independent, physically healthy, negotiates basic needs Patient Liabilities: live alone, relationship conflicts, imparied memory - Milieu Protocol Maintain good personal hygiene: daily Encourage regular showers, daily Remind patient to perform daily oral care, daily Assist patient to perform ADL's Conduct patient checks and document Observation sheet: Q15 minutes Maintain personal safety: every shift Educate patient to report safety concerns to staff, every shift Monitor environment for contraband/sharps Medication safety: Monitor for expected outcome, potential side effects: every shift, Assess barriers to learning: every shift, Assess readiness for medication education: every shift Milieu Narrative: MDD w/ psychotic features; patient needs continued hospitalization for treatment and safety -Individual and group therapy -Continue Zoloft 50 mg PO Daily -Increase Risperdal to 1 mg PO HS -Medicine consult -Case discussed with patient's daughter -Disposition planning Family Contact Family contact: Family has been contacted by patient, Patient declines to allow family contact at present Family contact name: Cristy - daughter Family contacted how many times per week?: 2 Family contact comment: [phone] - Outside Agency Dr. Di Jensen MD Care involvment: Not involved Discharge/Continuing Care - Education Needs Education Needs: Family Medication, Family Diagnosis/Disease Process, Family Coping Skills, Family Placement options, Family Community resources, Family Activities of Daily Living, Family Health Practices/Safety, Family Personal Hygiene/Grooming, Family Aftercare Safety Plan, Patient Medication, Patient Diagnosis/Disease Process, Patient Coping Skills, Patient Placement options, Patient Community resources, Patient Activities of Daily Living, Patient Health Practices/Safety, Patient Personal Hygiene/Grooming, Patient Aftercare Safety Plan - Discharge Discharge Criteria: Tolerates medication w/o severe side effects, Free of paranoid thoughts, Free of agitation, Normal sleep pattern, Ability to care for self, Reduction of target symptoms Discharge to:: Home, With Family - Additional Comments 07/12/17 12:19 Pt seen and discussed in team meeting. Reason for admission reviewed and discussed. Pt reported feeling "not so good." Pt reported she was referred tot [facility] because she was sleeping in the lobby of her building and the landlord "did not like that very much." Pt reported reason for sleeping in the lobby of her building as "maybe loneliness, isolation and even delusional, almost like schizophrenia." Pt asked to further discuss her "delusions." Pt reported "like repetitious incidents." Pt described an incident where she would see a woman wave good-bye to her but then would go tot he door and there was no- one to wave too. Pt also reported "slipping" on her bills because of her depression. Pt reported not paying her [employer] bill and since then the "electricity is winding down." Pt reported she is fearful that she will be evicted because she was sleeping in the lobby and not paying her [employer] bill. Pt' s medications reviewed and discussed at length with attending psychiatrist. Please refer to psychiatric progress note for additional information. Pt was easily distracted and poor concentration. Pt appears to be her stated age, but fragile. Pt appears to be under weight. Pt is agreeable to a turn supervisor consult. Pt signed consent form for teletypewriter operator to speak to her daughter, Cristy; however, only when the daughter visits her on the unit and she is present. Pt stated "she won' t have nice things to say about me." [employer] will continue to follow case. - Treatment Team Participation Patient/Family/SO Statement: MDD w/ psychotic features; patient needs continued hospitalization for treatment and safety -Individual and group therapy -Continue Zoloft 50 mg PO Daily -Increase Risperdal to 1 mg PO HS -Medicine consult -Case discussed with patient's daughter -Disposition planning Discussed with Family/SO: No Was Patient/Family/SO present at Treatment Team Meeting: Yes Treatment Plan Review - Problem Delusions Date Initiated: 07/07/17 Time Initiated: 01:32 Progress toward outcomes: improved Altered Sleep Patterns Date Initiated: 07/07/17 Time Initiated: 01:33 Progress toward outcomes: unchanged (Pt continues to report poor sleep pattern.) - Discharge / Continuing Care Behavioral Health Services: Home health care (Daughter in agreement with private pay services- information for [facility] provided), Other (Pt will follow up with mental health services) Health Needs: Nutritional, Medications/Rx, Educational, Recreational/Social
--- NOTE | 2017-07-17 09:23 | PCM.PYCHPN ---
Psychiatric Progress Note - Psychiatric Progress Note Patient seen today, length of contact: Patient evaluated, case discussed with team, chart reviewed Patient Chief Complaint: "I'm depressed." Problems Identified/Issues Discussed: Patient reports that her mood is improving, but she continues to report mild paranoia, which may be a fixed delusion. She took Risperdal 0.5 mg PO HS last night because she was concerned that the 1 mg may make her feel too sedated. She reports improved sleep. No adverse effects to medications reported. NO AH/ VH/SI/HI. Medication Change: No Medical Record Reviewed: Yes Consults ordered or reviewed: Medicine consult, Dietitian referral Mental Status Examination - Cognitive Function Orientation: Person, Place, Situation, Time Memory: Impaired Attention: WNL Concentration: WNL Association: WNL Fund of Knowledge: [facility] Decription of patient's judgement and insights: Fair I/J - Mood Mood: Anxious - Affect Affect: Broad - Speech Speech: Soft - Formal Thought Process Formal Thought Process: Paranoia Psychotic Thoughts and Behaviors: +paranoia - Suicidal Ideation Suicidal Ideation: No - Homicidal Ideation Homicidal Ideation: No Goal/Treatment Plan - Goal/Treatment Plan Need for Continued Stay: Severe depression anxiety, Discharge may exacerbated symptoms Progress Toward Problem(s) and Goals/Treatment Plan: MDD w/ psychotic features; patient needs continued hospitalization for treatment and safety -Individual and group therapy -Continue Zoloft 50 mg PO Daily -Risperdal 0.5 mg PO HS -Medicine consult -Case discussed with patient's daughter -Disposition planning Estimated Date of D/C: 07/19/17
[2017-07-17] MEDS: Magnesium Hydroxide Susp 30 ml UD PO PRN (17:12)
--- NOTE | 2017-07-18 10:02 | PCM.PYCHPN ---
Psychiatric Progress Note - Psychiatric Progress Note Patient seen today, length of contact: Patient evaluated, case discussed with team, chart reviewed Patient Chief Complaint: "I'm depressed." Problems Identified/Issues Discussed: Patient reports that her mood is improving and denies acute paranoia. She took Risperdal 1 mg PO HS and denies adverse effects to the medication. She reports improved sleep. NO AH/VH/SI/HI. Medication Change: No Medical Record Reviewed: Yes Consults ordered or reviewed: Medicine consult, Dietitian referral Mental Status Examination - Cognitive Function Orientation: Person, Place, Situation, Time Memory: Impaired Attention: WNL Concentration: WNL Association: [facility] Fund of Knowledge: [facility] Decription of patient's judgement and insights: Fair I/J - Mood Mood: Anxious - Affect Affect: Broad - Speech Speech: Soft - Formal Thought Process Formal Thought Process: No Impairment Psychotic Thoughts and Behaviors: +Denies acute paranoia - Suicidal Ideation Suicidal Ideation: No - Homicidal Ideation Homicidal Ideation: No Goal/Treatment Plan - Goal/Treatment Plan Need for Continued Stay: Discharge may exacerbated symptoms Progress Toward Problem(s) and Goals/Treatment Plan: MDD w/ psychotic features -Individual and group therapy -Zoloft 50 mg PO Daily -Risperdal 1 mg PO HS -Medicine consult -Case discussed with patient's daughter -Disposition planning- Discharge tomorrow Estimated Date of D/C: 07/19/17
[2017-07-18 16:29] VITALS: BP 131/61; PULSE 71; RESP 20; TEMP 97.6
--- NOTE | 2017-07-19 10:03 | PCM.PYCHDC ---
Mental Status Examination - Mental Status Examination Orientation: Person, Place, Situation, Time Memory: Impaired Mood: Neutral Affect: Broad Speech: Appropriate Association: WNL Fund of Knowledge: WNL Formal Thought Process: No Impairment Description of patient's judgement and insight: Fair I/J Psychotic Thoughts and Behaviors: +Denies AH/VH/paranoia Suicidal Ideation: No Current Homicidal Ideation?: No Discharge Summary - Discharge Note Reason for Hospitalization: 76 year old female admitted with worsening depression, anxiety and paranoid delusions. Consultations:: List each consultation separately and include: 1. Reason for request. 2. Findings. 3. Follow-up Consultations: Medicine consult, Dietitian referral Summary of Hospital Course include:: 1. Description of specific treatment plan utilized for patients during their course of treatmen. 2. Summarize the time- course for resolution of acute symptoms and/or regressed behaviors. 3. Describe issues identified and worked on during hospitalization. 4. Describe medication utilized. 5. Describe medical problems identified and treated. 6. Reassessment of suicide risk Summary of Hospital Course: Patient was admitted to the geriatric psychiatry unit. Individual and group therapy were provided. Patient was stabilized on Zoloft 50 mg PO Daily, Risperdal 1 mg PO HS and Ativan 0.5 mg PO PRN. She reports improved mood and no longer reports paranoia. She is psychiatrically stable for discharge with outpatient follow-up. - Diagnosis (1) Major depressive disorder with psychotic features Current Visit: Yes Status: Chronic - Final Diagnosis (DSM 5) Condition upon Discharge: STABLE DSM 5: Major Depressive Disorder w/ Psychotic Features Disposition: HOME/ ROUTINE Follow-up Treatment Plan: MDD w/ psychotic features -Individual and group therapy -Zoloft 50 mg PO Daily -Risperdal 1 mg PO HS -Medicine consult -Case discussed with patient's daughter -Discharge with outpatient follow-up Prescriptions/Medication Reconciliation: LORazepam [Ativan] 0.5 mg PO DAILY PRN #30 tab PRN Reason: Anxiety risperiDONE [RisperDAL Tab] 1 mg PO HS #30 tab Sertraline [Zoloft] 50 mg PO DAILY #30 tab - Smoking Cessation Smoking Cessation Medication prescribed: No Reason for not providing: Not indicated - Antipsychotic Medications Pt discharged on 2 or more routine antipsychotic medications: No
== END 2017-07-19 14:35 | disposition home or self-care (01) | DRG 885 ==
LOC: H.ER 11:04 → H.ERHOLD 19:00 → H.STEP 19:38
PROVIDERS: ADMIT Psychiatry & Neurology Psychiatry; ATTEND Psychiatry & Neurology Psychiatry
PROC: GZHZZZZ Group Psychotherapy (ICD-10-PCS; principal; 2017-07-07)
PROC: GZ58ZZZ Individual Psychotherapy, Cognitive-Behavioral (ICD-10-PCS; 2017-07-07)
DX: F32.3 Major depressive disorder, single episode, severe with psychotic features (principal); Z91.14 Patient's other noncompliance with medication regimen; F41.9 Anxiety disorder, unspecified; F42.9 Obsessive-compulsive disorder, unspecified; G47.09 Other insomnia; Z88.6 Allergy status to analgesic agent; Z88.0 Allergy status to penicillin; Z79.899 Other long term (current) drug therapy